=== PATIENT | male | born 1950 | race American Indian/Alaskan Native ===

== ENCOUNTER 2017-06-09 19:30 | Inpatient (IN) | payer OTHER, MEDICARE ==
[2017-06-09] MEDS ORDERED: Sodium Chloride 0.9% 1,000 ML IV STA ×2 (20:04→21:07)
[2017-06-09] MEDS ORDERED: HYDROmorphone 2 mg/ml ISec IVP STA (20:05)
--- NOTE | 2017-06-09 20:57 | ED PDOC ---
Arrival/HPI - General Chief Complaint: GI Problem Time Seen by Provider: 06/09/17 19:34 Historian: Patient - History of Present Illness Narrative History of Present Illness (Text): 06/09/17 20:55 Jose Ford is a 67 year old male, whose past medical history includes diabetes, who presents to the Emergency department complaining of epigastric pain for 1 day. Patient denies any fever, chills, chest pain, shortness of breath, nausea, vomiting, diarrhea, urinary symptoms, back pain, neck pain, headache, dizziness , or any other complaints. Patient states he was seen in his PMD's office for similar complaints and sent to the ER for further evaluation. PMD: Dr. Arabella Mills Symptom Onset: Gradual Symptom Course: Unchanged Activities at Onset: Light Context: Home Past Medical History - Provider Review Nursing Documentation Reviewed: Yes - Infectious Disease Hx of Infectious Diseases: None - Cardiac Hx Cardiac Disorders: Yes Hx Hypertension: Yes - Pulmonary Hx Respiratory Disorders: No - Neurological Hx Neurological Disorder: No - HEENT Hx HEENT Disorder: Yes (X GLASSES) - Renal Hx Renal Disorder: No - Endocrine/Metabolic Hx Endocrine Disorders: Yes Hx Diabetes Mellitus Type 2: Yes - Hematological/Oncological Hx Blood Disorders: Yes Hx Cancer: Yes (liver) - Integumentary Hx Dermatological Disorder: No - Musculoskeletal/Rheumatological Hx Musculoskeletal Disorders: No Hx Falls: No - Gastrointestinal Hx Gastrointestinal Disorders: No - Genitourinary/Gynecological Hx Genitourinary Disorders: No - Psychiatric Hx Psychophysiologic Disorder: No Hx Depression: No Hx Emotional Abuse: No Hx Physical Abuse: No Hx Substance Use: No - Anesthesia Hx Anesthesia: No - Suicidal Assessment Feels Threatened In Home Enviroment: No Family/Social History - Physician Review Nursing Documentation Reviewed: Yes Family/Social History: Unknown Family HX Smoking Status: Never Smoked Hx Alcohol Use: No Hx Substance Use: No Hx Substance Use Treatment: No Allergies/Home Meds Allergies/Adverse Reactions: Allergies pentazocine [From [facility]win] Allergy (Verified 06/09/17 19:39) ANAPHYLAXIS Home Medications: Home Meds Medication Instructions Recorded Confirmed Amlodipine Besylate/Benazepr 1 cap PO DAILY 01/05/12 06/09/17 [Lotrel 10 mg-20 mg] Glyburide/Metformin Hydrochl 1 tab PO BID 01/05/12 06/09/17 [Glucovance 5 mg-500 mg] Methadone [Methadone HCl] 70 mg PO DAILY 01/05/12 06/09/17 Insulin Glargine,Hum.rec.anlog 40 units SC HS 06/09/17 06/09/17 [Dipesh Pedro U-100] Review of Systems - Physician Review All systems were reviewed & negative as marked: Yes - Review of Systems Constitutional: Normal. absent: Fevers Eyes: Normal ENT: Normal Respiratory: Normal. absent: SOB, Cough Cardiovascular: Normal. absent: Chest Pain Gastrointestinal: Abdominal Pain. absent: Diarrhea, Nausea, Vomiting Genitourinary Male: Normal. absent: Dysuria, Frequency, Hematuria, Urinary Output Changes Musculoskeletal: Normal. absent: Back Pain, Neck Pain Skin: Normal. absent: Rash Neurological: Normal. absent: Headache, Dizziness Endocrine: Normal Hemo/Lymphatic: Normal Psychiatric: Normal Physical Exam Vital Signs Reviewed: Yes Vital Signs Temp Pulse Resp BP Pulse Ox 06/10/17 02:17 64 18 146/81 98 06/10/17 02:12 64 18 146/81 97 06/10/17 01:00 98.9 F 88 19 99 06/09/17 21:02 81 18 128/67 97 06/09/17 19:42 97.9 F 98 H 18 110/75 96 Temperature: Afebrile Blood Pressure: Normal Pulse: Regular Respiratory Rate: Normal Appearance: Positive for: Well-Appearing, Non-Toxic, Comfortable Pain Distress: None Mental Status: Positive for: Alert and Oriented X 3 - Systems Exam Head: Present: Atraumatic, Normocephalic Pupils: Present: PERRL Extroacular Muscles: Present: EOMI Conjunctiva: Present: Normal Mouth: Present: Moist Mucous Membranes Neck: Present: Normal Range of Motion Respiratory/Chest: Present: Clear to Auscultation, Good Air Exchange. No: Respiratory Distress, Accessory Muscle Use Cardiovascular: Present: Regular Rate and Rhythm, Normal S1, S2. No: Murmurs Abdomen: Present: Tenderness (Epigastric tenderness), Normal Bowel Sounds. No: Distention, Peritoneal Signs Back: Present: Normal Inspection Upper Extremity: Present: Normal Inspection. No: Cyanosis, Edema Lower Extremity: Present: Normal Inspection. No: Edema Neurological: Present: GCS=15, CN II-XII Intact, Speech Normal Skin: Present: Warm, Dry, Normal Color. No: Rashes Psychiatric: Present: Alert, Oriented x 3, Normal Insight, Normal Concentration Medical Decision Making ED Course and Treatment: 06/09/17 20:55 Impression: 67 year old male complaining of epigastric pain for 1 day. Plan: -- CT Abdomen and Pelvis -- EKG -- Labs, VBG, amylase, lipase, cardiac enzymes, blood cultures -- UA -- IV fluids -- Zofran -- Protonix -- Dilaudid -- Reassess and disposition Progress Notes: 06/09/17 21:45 Reviewed EKG, NSR at [address] bpm[address] Non-specific ST/T wave changes. 06/09/17 23:43 CT Abdomen and Pelvis shows: Lower thorax: Subpleural upper lobe cystic change. The remainder of the lung bases are clear. ABDOMEN: Liver: Indeterminate findings within segment 6 of the liver for which dedicated ultrasound versus contrast-enhanced MRI (with liver mass protocol) is suggested. Gallbladder and bile ducts: Stones and sludge are identified within the gallbladder which is minimally distended. No intra-extrahepatic biliary ductal dilation. Pancreas: Irregularity is identified within the head of the pancreas which demonstrates decreased attenuation. Surrounding infiltration of the peripancreatic fat at the level of the pancreatic head is also detected. Moderate dilatation of the main pancreatic duct is also noted. Minimally enlarged lymph nodes are identified within the pancreaticoduodenal, celiac and gastrohepatic Lymph node basins. The largest lymph node is within the pancreaticoduodenal chain measuring 15 mm in short axis dimension. Spleen: No acute findings. Adrenals: No acute findings. Kidneys and ureters: No obstructing stones. No hydronephrosis. Multiple areas of decreased attenuation are identified within the bilateral kidneys, statistically representing cysts. Multiple nonobstructing calcified stones are also present, the largest on the left measuring 7 mm in greatest dimension. PELVIS: Bladder: No acute findings. Reproductive: No acute findings. Appendix: The air filled appendix is of normal-caliber (series 601, image 74; series 2, image 105) ABDOMEN and PELVIS: Stomach and bowel: No acute findings. Peritoneum: As above. Lymph nodes: As above. Vasculature: No aortic aneurysm. Calcified atherosclerotic disease. Limited evaluation of the portal vein and celiac axis without intravenous contrast. Bones: No acute fracture. No lytic or blastic lesions are identified. IMPRESSION: Findings within the head of the pancreas worrisome for malignancy, as detailed above. Limited evaluation of the surrounding vasculature, secondary to the lack of intravenous contrast. Indeterminate findings within segment 6 of the liver for which dedicated ultrasound versus contrastenhanced MRI (with liver mass protocol) is recommended for further evaluation. Stones and sludge within the gallbladder. 06/09/17 23:[address] Mills's service, per his request. Service would not transfer call through to Dr. Mills. 06/10/17 01:[address] Glover, covering for Dr. Mills, who is aware and agrees with plan. Pt will be admitted to [facility] for abdomial pain and pancreatitis under Dr. Mills's service. - Lab Interpretations Microbiology Results: Microbiology Results 06/09/17 21:00 Blood-Venous Blood Culture - Preliminary NO GROWTH AFTER 24 HOURS 06/09/17 20:40 Blood-Venous Blood Culture - Preliminary NO GROWTH AFTER 24 HOURS Lab Results: 06/09/17 20:40 06/09/17 20:40 Lab Results 06/09/17 23:04: POC Glucose (mg/dL) 172 H 06/09/17 21:33: POC Glucose (mg/dL) 433 H* 06/09/17 20:40: pO2 43, VBG pH 7.29 L, VBG pCO2 62.0 H, VBG HCO3 29.8 H, VBG Total CO2 31.7 H, VBG O2 Sat (Calc) 81.0 H, VBG Base Excess 1.6, VBG Potassium 5.3 H, Sodium 133.0, Chloride 95.0 L, Glucose 523 H*, Lactate 1.1, FiO2 21.0, Venous Blood Potassium 5.3 H 06/09/17 20:40: Sodium 134, Chloride 96 L, Potassium 5.2 H, Carbon Dioxide 28, Anion Gap 16, BUN 35 H, Creatinine 1.5, Est GFR ( Amer) 56, Est GFR (Non- Af Amer) 46, Random Glucose 501 H*, Calcium 9.8, Total Bilirubin 0.8, AST 46, ALT 56, Alkaline Phosphatase 81, Lactate Dehydrogenase 461, Total Creatine Kinase 49, Troponin I < 0.01, Total Protein 7.5, Albumin 4.1, Globulin 3.4, Albumin/Globulin Ratio 1.2, Amylase 94, Lipase 357 H 06/09/17 20:40: PT 11.7, INR 1.07, APTT 27.7 06/09/17 20:40: WBC 4.8, RBC 4.73, Hgb 13.4 L, Hct 42.0, MCV 88.8, MCH 28.3, MCHC 31.9, RDW 12.6, Plt Count 162, MPV 11.5 H, Gran % 73.9 H, Lymph % (Auto) 19.9 L, Upson % (Auto) 5.2, Eos % (Auto) 0.8 L, Baso % (Auto) 0.2, Gran # 3.57, Lymph # 1.0 L, Upson # 0.3, Eos # 0.0, Baso # 0.01 I have reviewed the lab results: Yes - RAD Interpretation Radiology Orders: 06/09/17 21:18 ABD & PELVIS W/O PO OR IV CONT [CT] Stat [employer]: Radiologist - EKG Interpretation Interpreted by ED Physician: Yes Type: 12 lead EKG - Medication Orders Current Medication Orders: Sodium Chloride (Sodium Chloride 0.45%) 1,000 mls @ 80 mls/hr IV .[id number] [facility] Last Admin: 06/10/17 07:17 Dose: 80 mls/hr eMAR Start Stop Document 06/10/17 07:17 (Rec: 06/10/17 07:18 [email or web address] Intravenous Solution Start Date 06/10/17 Start Time 07:00 Insulin Human Regular (Humulin R Low) 0 units SC ACHS [facility] PRN Reason: Protocol Last Admin: 06/10/17 22:21 Dose: Not Given Non-Admin Reason: Blood Sugar Parameter [facility] Blood Glucose Document 06/10/17 22:21 KT (Rec: 06/10/17 22:21 KT [id number]) Blood Glucose Finger Stick Blood Glucose (70-120) 182 Methadone HCl (Methadone) 10 mg PO DAILY [facility] Last Admin: 06/10/17 21:20 Dose: 10 mg MAR Pain Assessment Document 06/10/17 21:20 KT (Rec: 06/10/17 21:22 KT [id number]) Pain Reassessment Is this a pain reassessment? No Presence of Pain Presence of Pain Yes Pain Scale Used Pain Scale Used Numeric Pantoprazole Sodium (Protonix Inj) 40 mg IVP DAILY [facility] Last Admin: 06/10/17 10:59 Dose: 40 mg IVP Administration Document 06/10/17 10:59 YJ (Rec: 06/10/17 10:59 YJ [id number]) Charges for Administration # of IVP Administrations 1 Polyethylene Glycol (Miralax) 17 gm PO BID JAIRO Last Admin: 06/10/17 17:26 Dose: 17 gm Discontinued Medications Hydromorphone HCl (Dilaudid) 2 mg IVP STAT STA Stop: 06/09/17 20:06 Last Admin: 06/09/17 20:57 Dose: 2 mg MAR Pain Assessment Document 06/09/17 20:57 EQ (Rec: 06/09/17 20:57 EQ [id number]) Pain Reassessment Is this a pain reassessment? No Sleep Is patient sleeping during reassessment? No Presence of Pain Presence of Pain Yes Pain Scale Used Pain Scale Used Numeric IVP Administration Document 06/09/17 20:57 EQ (Rec: 06/09/17 20:57 EQ [id number]) Charges for Administration # of IVP Administrations 1 Sodium Chloride (Sodium Chloride 0.9%) 1,000 mls @ 100 mls/hr IV .Q10H STA Stop: 06/10/17 06:03 Last Admin: 06/09/17 20:56 Dose: 100 mls/hr eMAR Start Stop Document 06/09/17 20:56 EQ (Rec: 06/09/17 20:57 EQ [id number]) Intravenous Solution Start Date 06/09/17 Start Time 20:56 Sodium Chloride (Sodium Chloride 0.9%) 1,000 mls @ 200 mls/hr IV .Q5H STA Stop: 06/10/17 01:03 Last Admin: 06/09/17 21:22 Dose: 200 mls/hr eMAR Start Stop Document 06/09/17 21:22 EQ (Rec: 06/09/17 21:22 EQ [id number]) Intravenous Solution Start Date 06/09/17 Start Time 21:22 Metronidazole (Flagyl) 500 mg in 100 mls @ 100 mls/hr IVPB STAT STA PRN Reason: Protocol Stop: 06/10/17 02:34 Last Admin: 06/10/17 03:24 Dose: 100 mls/hr eMAR Start Stop Document 06/10/17 03:24 MJ (Rec: 06/10/17 03:25 MJ [id number]) Intravenous Solution Start Date 06/10/17 Start Time 03:25 Ceftriaxone Sodium (Rocephin 1 Gram Ivpb (D5w)) 1 gm in 100 mls @ 200 mls/hr IVPB STAT JAIRO PRN Reason: Protocol Stop: 06/10/17 02:14 Last Admin: 06/10/17 02:13 Dose: 200 mls/hr eMAR Start Stop Document 06/10/17 02:13 [email or web address] (Rec: 06/10/17 02:13 [email or web address] [id number]) Intravenous Solution Start Date 06/10/17 Start Time 02:13 End Date 06/10/17 Sodium Chloride (Sodium Chloride 0.9%) 1,000 mls @ 100 mls/hr IV .Q10H STA Stop: 06/10/17 11:36 Last Admin: 06/10/17 02:13 Dose: 100 mls/hr eMAR Start Stop Document 06/10/17 02:13 [email or web address] (Rec: 06/10/17 02:13 [email or web address] [id number]) Intravenous Solution Start Date 06/10/17 Start Time 02:13 End Date 06/10/17 Insulin Human Regular (Humulin R) 10 units IVP STAT STA Stop: 06/09/17 21:05 Last Admin: 06/09/17 21:37 Dose: 10 units [facility] Blood Glucose Document 06/09/17 21:37 EQ (Rec: 06/09/17 21:37 EQ [id number]) Blood Glucose Finger Stick Blood Glucose (70-120) 433 IVP Administration Document 06/09/17 21:37 EQ (Rec: 06/09/17 21:37 EQ [id number]) Charges for Administration # of IVP Administrations 1 Morphine Sulfate (Morphine) 2 mg IVP Q4H PRN PRN Reason: Pain, moderate (4-7) Last Admin: 06/10/17 15:55 Dose: 2 mg MAR Pain Assessment Document 06/10/17 15:55 YJ (Rec: 06/10/17 15:56 YJ [id number]) Pain Reassessment Is this a pain reassessment? Yes Sleep Is patient sleeping during reassessment? No Presence of Pain Presence of Pain Yes Pain Scale Used Pain Scale Used Numeric Location Pain Location Body Site Abdomen Description Intensity of Pain at present 7 IVP Administration Document 06/10/17 15:55 YJ (Rec: 06/10/17 15:56 YJ [id number]) Charges for Administration # of IVP Administrations 1 Re-Assess: SETH Pain Assessment Document 06/10/17 16:55 YJ (Rec: 06/10/17 17:26 YJ [id number]) Pain Reassessment Is this a pain reassessment? Yes Sleep Is patient sleeping during reassessment? Yes Ondansetron HCl (Zofran Inj) 4 mg IVP STAT STA Stop: 06/09/17 20:05 Last Admin: 06/09/17 20:57 Dose: 4 mg IVP Administration Document 06/09/17 20:57 EQ (Rec: 06/09/17 20:57 EQ [id number]) Charges for Administration # of IVP Administrations 1 Pantoprazole Sodium (Protonix Inj) 40 mg IVP ONCE STA Stop: 06/09/17 20:09 Last Admin: 06/09/17 20:57 Dose: 40 mg IVP Administration Document 06/09/17 20:57 EQ (Rec: 06/09/17 20:58 EQ [id number]) Charges for Administration # of IVP Administrations 1 - Scribe Statement The provider has reviewed the documentation as recorded by the Patricia Roca Provider Scribe Attestation: All medical record entries made by the Scribe were at my direction and personally dictated by me. I have reviewed the chart and agree that the record accurately reflects my personal performance of the history, physical exam, medical decision making, and the department course for this patient. I have also personally directed, reviewed, and agree with the discharge instructions and disposition. Disposition/Present on Arrival - Present on Arrival Any Indicators Present on Arrival: No History of DVT/PE: No History of Uncontrolled Diabetes: No Urinary Catheter: No History of Decub. Ulcer: No History Surgical Site Infection Following: None - Disposition Have Diagnosis and Disposition been Completed?: Yes Diagnosis: Pancreatitis, acute Disposition: HOSPITALIZED Disposition Time: 01:30 Patient Problems: Current Active Problems Problem Status Onset Pancreatitis, acute Acute Condition: FAIR
[2017-06-09 21:02] LABS: VENOUS BLOOD GAS BASE EXCESS 1.6 mmol/L (0.0-2.0); VENOUS BLOOD PH 7.29 (7.32-7.43)
[2017-06-09] MEDS ORDERED: Insulin Regular 1 UNITS/0.01 ML ML IVP STA (21:04)
[2017-06-09 21:06] LABS: BASO # 0.01 K/mm3 (0.0-2.0); BASO % 0.2 % (0.0-3.0); EOS % 0.8 % (1.5-5.0); GRAN # 3.57 (1.4-6.5); GRAN % 73.9 % (50.0-68.0); LYMPH % 19.9 % (22.0-35.0); MEAN CELL VOLUME 88.8 fl (80.0-105.0); MEAN CORPUSCULAR HEMOGLOBIN 28.3 pg (25.0-35.0); MEAN CORPUSCULAR HGB CONC 31.9 g/dl (31.0-37.0); MEAN PLATELET VOLUME 11.5 fl (7.0-11.0); MONO # 0.3 (0.1-0.6); MONO % 5.2 % (1.0-6.0); RED CELL DISTRIBUTION WIDTH 12.6 % (11.5-14.5); WHITE BLOOD COUNT 4.8 10^3/ul (4.5-11.0)
[2017-06-09 21:17] LABS: ALB/GLOB RATIO 1.2 (1.1-1.8); ALKALINE PHOSPHATASE 81 U/L (38-126); ALT/SGPT 56 U/L (7-56); AMYLASE 94 U/L (35-125); AST/SGOT 46 U/L (17-59); BILIRUBIN,TOTAL 0.8 mg/dL (0.2-1.3); BLOOD UREA NITROGEN 35 mg/dL (7-21); CALCIUM 9.8 mg/dL (8.4-10.5); CARBON DIOXIDE 28 mmol/L (21-33); CHLORIDE 96 mmol/L (98-107); GFR AFRICAN-AMERICAN 56; LIPASE 357 U/L (23-300); POTASSIUM 5.2 mmol/L (3.6-5.0); SODIUM 134 mmol/L (132-148); TOTAL PROTEIN 7.5 g/dL (5.8-8.3)
[2017-06-09 21:21] LABS: GLUCOSE,RANDOM 501 mg/dL (70-110)
[2017-06-09 21:23] LABS: TROPONIN I < 0.01 ng/mL
[2017-06-09 21:38] LABS: INR 1.07 (0.93-1.08); PARTIAL THROMBOPLASTIN TIME 27.7 Seconds (25.1-36.5)
--- NOTE | 2017-06-09 23:42 | CT ---
EXAM: CT Abdomen and Pelvis Without Intravenous Contrast CLINICAL HISTORY: 67 years old, male; Pain; Abdominal pain; Acute; Additional info: Abd pain TECHNIQUE: Axial computed tomography images of the abdomen and pelvis without intravenous contrast. All CT scans at this facility use one or more dose reduction techniques, viz.: automated exposure control; ma/kV adjustment per patient size (including targeted exams where dose is matched to indication; i.e. head); or iterative reconstruction technique. Coronal and sagittal reformatted images were created and reviewed. COMPARISON: No relevant prior studies available. FINDINGS: Lower thorax: Subpleural upper lobe cystic change. The remainder of the lung bases are clear. ABDOMEN: Liver: Indeterminate findings within segment 6 of the liver for which dedicated ultrasound versus contrast-enhanced MRI (with liver mass protocol) is suggested. Gallbladder and bile ducts: Stones and sludge are identified within the gallbladder which is minimally distended. No intra-extrahepatic biliary ductal dilation. Pancreas: Irregularity is identified within the head of the pancreas which demonstrates decreased attenuation. Surrounding infiltration of the peripancreatic fat at the level of the pancreatic head is also detected. Moderate dilatation of the main pancreatic duct is also noted. Minimally enlarged lymph nodes are identified within the pancreaticoduodenal, celiac and gastrohepatic Lymph node basins. The largest lymph node is within the pancreaticoduodenal chain measuring 15 mm in short axis dimension. Spleen: No acute findings. Adrenals: No acute findings. Kidneys and ureters: No obstructing stones. No hydronephrosis. Multiple areas of decreased attenuation are identified within the bilateral kidneys, statistically representing cysts. Multiple nonobstructing calcified stones are also present, the largest on the left measuring 7 mm in greatest dimension. PELVIS: Bladder: No acute findings. Reproductive: No acute findings. Appendix: The air filled appendix is of normal-caliber (series 601, image 74; series 2, image 105) ABDOMEN and PELVIS: Stomach and bowel: No acute findings. Peritoneum: As above. Lymph nodes: As above. Vasculature: No aortic aneurysm. Calcified atherosclerotic disease. Limited evaluation of the portal vein and celiac axis without intravenous contrast. Bones: No acute fracture. No lytic or blastic lesions are identified. IMPRESSION: Findings within the head of the pancreas worrisome for malignancy, as detailed above. Limited evaluation of the surrounding vasculature, secondary to the lack of intravenous contrast. Indeterminate findings within segment 6 of the liver for which dedicated ultrasound versus contrast-enhanced MRI (with liver mass protocol) is recommended for further evaluation. Stones and sludge within the gallbladder.
[2017-06-10] MEDS ORDERED: metroNIDAZOLE IV 500 mg/100 ml 500 MG/100 ML BAG IVPB STA (01:35)
[2017-06-10] MEDS ORDERED: Sodium Chloride 0.9% 1,000 ML IV STA (01:37)
[2017-06-10] MEDS ORDERED: cefTRIAXone 1 gm 1 GM/100 ML BAG IVPB SCH (01:45)
[2017-06-10] MEDS: Morphine 2 mg/ml ISec IVP PRN ×3 (02:46→15:55)
[2017-06-10 03:12] VITALS: BMI 22.4
[2017-06-10 06:57] LABS: HEMATOCRIT 40.1 % (42.0-52.0); MEAN CELL VOLUME 88.9 fl (80.0-105.0); MEAN CORPUSCULAR HEMOGLOBIN 28.2 pg (25.0-35.0); MEAN CORPUSCULAR HGB CONC 31.7 g/dl (31.0-37.0); MEAN PLATELET VOLUME 11.2 fl (7.0-11.0); RED CELL DISTRIBUTION WIDTH 12.7 % (11.5-14.5); WHITE BLOOD COUNT 4.3 10^3/ul (4.5-11.0)
[2017-06-10] MEDS: Sodium Chloride 0.45% 1,000 ML IV SCH (07:17)
[2017-06-10] MEDS: Insulin Reg-LOW-Coverage SC SCH ×4 (08:25→22:21)
[2017-06-10 08:30] LABS: ALKALINE PHOSPHATASE 68 U/L (38-126); ALT/SGPT 43 U/L (7-56); AMYLASE 81 U/L (35-125); AST/SGOT 42 U/L (17-59); BILIRUBIN,TOTAL 0.5 mg/dL (0.2-1.3); BLOOD UREA NITROGEN 26 mg/dL (7-21); CALCIUM 9.2 mg/dL (8.4-10.5); CARBON DIOXIDE 29 mmol/L (21-33); CHLORIDE 105 mmol/L (98-107); GFR AFRICAN-AMERICAN > 60; GLUCOSE,RANDOM 106 mg/dL (70-110); LIPASE 261 U/L (23-300); POTASSIUM 4.5 mmol/L (3.6-5.0); SODIUM 142 mmol/L (132-148); TOTAL PROTEIN 6.9 g/dL (5.8-8.3)
--- NOTE | 2017-06-10 09:43 | CP.PCM.CON ---
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 Pt states that it started after he had a fish burger at [employer] on Thursday. He describes it as achy, intermittent, associated with food, and has associated nausea. Pt had one dry heaving episode. Denies vomiting, diarrhea, brbpr, change in bowel habits, hematochezia, melena. Pt has had constipation for the past 4-5 days. Pt normally has intermittent constipation, he attributes it to his daily 70mg methadone. Pt states that his father in law, who also ate same sandwich with him, got sick too with diarrhea. No prior EGD or colonoscopy. Denies recent travel. Pt has had In ED, pt received Protonix 40 mg IVx1 and zofran [address] abd pelvis showed irregularity within head of pancreas, mod dilatation of pancreatic duct. enlarged lymph nodes within pancreaticoduodenal chain, largest one measuring 15 mm. Gallstones and sludge within gallbladder, minimally distended. Lipase 357, AST, ALT ALP within normal limits. T bili 0.8, albumin 4.1. Currently, pt states that his pain is minimal and is hungry. Pt follows up with Dr Lazar (interventional radiology) and Dr latham at [facility]. His last MRI abdomen was on 05/20/2017, which showed no further growth. He is scheduled to start his Hep C treatment soon - previously held due to insurance issues. 12 point ROS obtained and negative except as noted per HPI. PMH: Hepatitis C, Liver Cancer (diagnosed 08/2016; chemoembolization x1 on 2016 at [facility]. Latest MRI 05/2017 shows no further growth), DM, HTN PSH: Denies All: Pentazocine FH: DM. Denies pancreatic cancer, gastric or colon cancer. SH: Former IV drug user. Denies alcohol use in lifetime. Former smoker, quit 20 years ago; previously 1 ppd x 5 years. Review of Systems - Review of Systems All systems: reviewed and no additional remarkable complaints except Review of Systems: as per HPI Past Patient History - Infectious Disease Hx of Infectious Diseases: None - Past Social History Smoking Status: Former Smoker - CARDIAC Hx Cardiac Disorders: Yes Hx Hypertension: Yes - PULMONARY Hx Respiratory Disorders: No - NEUROLOGICAL Hx Neurological Disorder: No - HEENT Hx HEENT Problems: Yes (X GLASSES) - RENAL Hx Chronic Kidney Disease: No - ENDOCRINE/METABOLIC Hx Endocrine Disorders: Yes Hx Diabetes Mellitus Type 2: Yes - HEMATOLOGICAL/ONCOLOGICAL Hx Blood Disorders: Yes Hx Cancer: Yes (liver) - INTEGUMENTARY Hx Dermatological Problems: No - MUSCULOSKELETAL/RHEUMATOLOGICAL Hx Musculoskeletal Disorders: No Hx Falls: No - GASTROINTESTINAL Hx Gastrointestinal Disorders: No - GENITOURINARY/GYNECOLOGICAL Hx Genitourinary Disorders: No - PSYCHIATRIC Hx Psychophysiologic Disorder: No Hx Depression: No Hx Emotional Abuse: No Hx Physical Abuse: No - SURGICAL HISTORY Hx Surgeries: No - ANESTHESIA Hx Anesthesia: No Meds Allergies/Adverse Reactions: Allergies Allergy/AdvReac Type Severity Reaction Status Date / Time pentazocine [From Joana] Allergy ANAPHYLAXIS Verified 06/09/17 19:39 - Medications Medications: Current Medications Sodium Chloride (Sodium Chloride 0.45%) 1,000 mls @ 80 mls/hr IV .[id number] [facility] Last Admin: 06/10/17 07:17 Dose: 80 mls/hr Insulin Human Regular (Humulin R Low) 0 units SC ACHS [facility] PRN Reason: Protocol Last Admin: 06/10/17 08:25 Dose: Not Given Morphine Sulfate (Morphine) 2 mg IVP Q4H PRN PRN Reason: Pain, moderate (4-7) Last Admin: 06/10/17 07:22 Dose: 2 mg Physical Exam - Constitutional Appears: Non-toxic, No Acute Distress, Older Than Stated Age - Head Exam Head Exam: ATRAUMATIC, NORMOCEPHALIC - Eye Exam Eye Exam: EOMI, PERRL Pupil Exam: PERRL - ENT Exam ENT Exam: Mucous Membranes Moist - Respiratory Exam Respiratory Exam: Clear to Auscultation Bilateral. absent: Respiratory Distress - Cardiovascular Exam Cardiovascular Exam: RRR, +S1, +S2. absent: Systolic Murmur - GI/Abdominal Exam GI & Abdominal Exam: Normal Bowel Sounds, Soft, Tenderness. absent: Guarding, Mass, Organomegaly, Rebound, Rigid Additional comments: TTP in epigastric area - Extremities Exam Extremities exam: Negative for: calf tenderness, pedal edema - Back Exam Back exam: NORMAL INSPECTION - Neurological Exam Neurological exam: Alert, Oriented x3 - Psychiatric Exam Psychiatric exam: Normal Mood - Skin Skin Exam: Dry, Warm Results - Vital Signs Recent Vital Signs: Last Vital Signs Temp 97.8 F 06/10/17 07:30 Pulse 64 06/10/17 07:30 Resp 20 06/10/17 07:30 BP 137/82 06/10/17 07:30 Pulse Ox 97 06/10/17 07:30 - Labs Result Diagrams: 06/10/17 06:30 06/10/17 06:30 Labs: Laboratory Results - last 24 hr 06/10/17 06/10/17 06/10/17 06:30 06:30 07:26 WBC 4.3 L RBC 4.51 Hgb 12.7 L Hct 40.1 L MCV 88.9 MCH 28.2 MCHC 31.7 RDW 12.7 Plt Count 146 MPV 11.2 H Sodium 142 Potassium 4.5 Chloride 105 Carbon Dioxide 29 Anion Gap 13 BUN 26 H Creatinine 1.2 Est GFR ( Amer) > 60 Est GFR (Non-Af Amer) > 60 POC Glucose (mg/dL) 87 Random Glucose 106 Calcium 9.2 Total Bilirubin 0.5 AST 42 ALT 43 Alkaline Phosphatase 68 Total Protein 6.9 Albumin 3.5 Globulin 3.4 Albumin/Globulin Ratio 1.0 L Amylase 81 Lipase 261 Assessment & Plan - Assessment and Plan (Free Text) Assessment: 67 years old male with hx of liver cancer (s/p chemoembolization in 09/2016), Hep C, presents for epigastric pain, nausea: Plan: - 2/2 likely GERD vs constipation vs gastroenteritis vs gastritis - CT abd pelvis showed irregularity within head of pancreas, mod dilatation of pancreatic duct. enlarged lymph nodes within pancreaticoduodenal chain - 15 mm. Gallstones and sludge within gallbladder, minimally distended. - Afebrile, hemodynamically stable, no leukocytosis/anemia. LFts within normal limits, ALP 81, lipase 357, lactate 1.1/ No signs of portal hypertension. - Received Protonix IV, zofran in ED - Pt currently states that his pain is minimal now, and he is hungry - Protonix, Miralax BID (titrate as needed) - Start Regular heart healthy, antidiabetic diet - Patient to follow up with his doctor at [facility] for Hepatitis C treatment and cancer monitoring. - Thank you for your consult. Please re-consult us for any concerns. Discussed with GI fellow and attending, Dr Henderson. Ana Maria Hill, PGY1 - Date & Time Date: 06/10/17 Time: 14:49 <Sandy Henderson MD - Last Filed: 06/10/17 16:23> Meds - Medications Medications: Current Medications Sodium Chloride (Sodium Chloride 0.45%) 1,000 mls @ 80 mls/hr IV .[id number] [facility] Last Admin: 06/10/17 07:17 Dose: 80 mls/hr Insulin Human Regular (Humulin R Low) 0 units SC ACHS [facility] PRN Reason: Protocol Last Admin: 06/10/17 12:59 Dose: Not Given Morphine Sulfate (Morphine) 2 mg IVP Q4H PRN PRN Reason: Pain, moderate (4-7) Last Admin: 06/10/17 15:55 Dose: 2 mg Pantoprazole Sodium (Protonix Inj) 40 mg IVP DAILY [facility] Last Admin: 06/10/17 10:59 Dose: 40 mg Polyethylene Glycol (Miralax) 17 gm PO BID [facility] Results - Vital Signs Recent Vital Signs: Last Vital Signs Temp 97.8 F 06/10/17 07:30 Pulse 64 06/10/17 07:30 Resp 20 06/10/17 07:30 BP 137/82 06/10/17 07:30 Pulse Ox 97 06/10/17 07:30 - Labs Result Diagrams: 06/10/17 06:30 06/10/17 06:30 Labs: Laboratory Results - last 24 hr 06/10/17 06/10/17 06/10/17 06:30 06:30 07:26 WBC 4.3 L RBC 4.51 Hgb 12.7 L Hct 40.1 L MCV 88.9 MCH 28.2 MCHC 31.7 RDW 12.7 Plt Count 146 MPV 11.2 H Sodium 142 Potassium 4.5 Chloride 105 Carbon Dioxide 29 Anion Gap 13 BUN 26 H Creatinine 1.2 Est GFR ( Amer) > 60 Est GFR (Non-Af Amer) > 60 POC Glucose (mg/dL) 87 Random Glucose 106 Calcium 9.2 Total Bilirubin 0.5 AST 42 ALT 43 Alkaline Phosphatase 68 Total Protein 6.9 Albumin 3.5 Globulin 3.4 Albumin/Globulin Ratio 1.0 L Amylase 81 Lipase 261 06/10/17 10:57 WBC RBC Hgb Hct MCV MCH MCHC RDW Plt Count MPV Sodium Potassium Chloride Carbon Dioxide Anion Gap BUN Creatinine Est GFR ( Amer) Est GFR (Non-Af Amer) POC Glucose (mg/dL) 150 H Random Glucose Calcium Total Bilirubin AST ALT Alkaline Phosphatase Total Protein Albumin Globulin Albumin/Globulin Ratio Amylase Lipase Attending/Attestation - Attestation I have personally seen and examined this patient.: Yes I have fully participated in the care of the patient.: Yes I have reviewed all pertinent clinical information: Yes Notes (Text): 06/10/17 16:11 Patient seen and examined at bedside with GI fellow. This is a 67 years old male with hx of liver cancer (s/p chemoembolization in 09/2016), chronic Hep C, treatment naive, admitted with epigastric pain and kiran pancreatic edema. Concerning CT imaging for liver lesions. On going oncology care at [facility] for HCC and chronic HCV. LFT is normal. This afternoon he denies nausea, vomiting, epigastric pain, constipation, diarrhea. Normal LFT. Will start PPI in am on empty stomach and miralax daily for constipation. Can start regular low fat diet and follow with his primary GI. Thank you for your consult. Please re-consult us for any concerns.
--- NOTE | 2017-06-10 12:59 | HP ---
HISTORY OF PRESENT ILLNESS: I saw Jose in my office last night around 6:00. He had severe abdominal pain. He could barely walked on my boggs in my office. I examined him, he had severe abdominal pain with guarding. He is a 67-year-old man who presents with severe abdominal pain, epigastric pain for about 24 to 36 hours. No chills, chest pain, shortness of breath, nausea, vomiting, diarrhea, urinary symptoms, back pain, neck pain, headache or dizziness. There is just midepigastric pain. I sent him to the emergency room and discussed with the ER doctor and he is here in the hospital now. PAST MEDICAL HISTORY: Diabetes, liver cancer, and hypertension. He is on methadone, some substance abuse history. Never smoked. FAMILY HISTORY: There is hypertension and diabetes in the family. ALLERGIES: HE HAS ALLERGY FROM [place]. MEDICATIONS: He takes amlodipine and benazepril for his blood pressure, glyburide for his diabetes, also some insulin and methadone for a drug issue. REVIEW OF SYSTEMS: No changes in vision or hearing. He can eat. He has no appetite. He has lost lot of weight. Throat is dry. No shortness of breath or cough. No chest pain or palpitation. He has severe abdominal pain, midepigastric. No diarrhea, nausea or vomiting. There is constipation, he has not had moved his bowels, but then he has been eating, but he does not feel uncomfortable. No problems urinating. No back pain or neck pain. No rashes or ulcers. No headache or dizziness. No anxiety. PHYSICAL EXAMINATION: VITAL SIGNS: He has 97.9 temperature, 98 pulse, 18 respiratory rate, 110/75 blood pressure, and 96% O2 sat. GENERAL: He is definitely in distress, little bit toxic. He is alert and oriented x3. HEENT: Head is atraumatic and normocephalic. Extraocular muscles intact. Pupils equally reactive to light and accommodation. Throat is dry. NECK: Supple. HEART: Regular rate. Normal S1 and S2. LUNGS: Decreased breath sounds bilaterally, but clear to auscultation. Poor inspiration. ABDOMEN: He has lot of abdominal pain. There is tenderness, epigastric through his guarding. Decreased bowel sounds. Mildly distended. EXTREMITIES: Have no edema. He is thin and frail. Lost lot of weight. I have not seen him in a very long, greater than 8 months, may be even a year. He lost lot of weight. NEUROLOGIC: GCS is 15. Cranial nerves II-XII grossly intact. SKIN: Warm and dry. Thyroid midline. No palpable appreciable lymphadenopathy. He is going to oncologist in the city and doctors in the city until this happened. He has got severe epigastric pain for one day. History of liver cancer and diabetes. He is on methadone. LABORATORY DATA: He had multiple tests. He has 4.3 white count, 12.7 hemoglobin, 40.1 hematocrit with 146 platelets. He has 1.07 INR. His lactate is 1.1. He had 134 sodium, potassium 5.2, BUN 35, creatinine 1.5, blood sugar is 501, 433 and now is down to 172, calcium is 9.8, AST is 46, ALT is 56, alkaline phosphatase is 81, lactate dehydrogenase is 461, total creatine kinase is 49, troponin less than 0.01, total protein is 7.5, and albumin is 4.1. His lipase is high at 257. There is a component of pancreatitis involvement here. He did have a CAT scan of the abdomen and pelvis, which is quite bothersome to me. It shows findings within the head of the pancreas for malignancy and to determine findings within the segment 6 of the liver and wanted to dedicate ultrasound versus enhanced MRI. Stone sludged within the gallbladder. I am going to call in GI, Dr. Tyler and Dr. Chappell, Oncology to get opinions here, because he usually goes to [place]. I will keep a very close eye on his n.p.o., pain medications, and IV fluids. He is here for pancreatitis possible, pancreatic cancer, severe abdominal pain and severe weight loss also. Partha Mills DO MTDD
--- NOTE | 2017-06-10 13:47 | CARD ---
APPROVED REPORT EKG Measurement Heart [id number] <Conclusion> Poor data quality, interpretation may be adversely affected Normal sinus rhythm
[2017-06-10] MEDS: POLYETHYLENE GLYCOL 3350 17 GM/Dose PACKET PO SCH (17:26)
[2017-06-11 04:36] VITALS: RESP 20; O2SAT 97
[2017-06-11 07:07] LABS: HEMATOCRIT 38.8 % (42.0-52.0); MEAN CELL VOLUME 87.8 fl (80.0-105.0); MEAN CORPUSCULAR HEMOGLOBIN 27.8 pg (25.0-35.0); MEAN CORPUSCULAR HGB CONC 31.7 g/dl (31.0-37.0); MEAN PLATELET VOLUME 11.1 fl (7.0-11.0); RED CELL DISTRIBUTION WIDTH 12.3 % (11.5-14.5); WHITE BLOOD COUNT 3.8 10^3/ul (4.5-11.0)
[2017-06-11 07:17] VITALS: BP 139/74; PULSE 56; TEMP 98.8
[2017-06-11] MEDS: Insulin Reg-LOW-Coverage SC SCH ×2 (07:54→12:21)
[2017-06-11] MEDS: Sodium Chloride 0.45% 1,000 ML IV SCH (07:59)
[2017-06-11 09:00] LABS: ALKALINE PHOSPHATASE 64 U/L (38-126); ALT/SGPT 44 U/L (7-56); AST/SGOT 45 U/L (17-59); BILIRUBIN,TOTAL 0.8 mg/dL (0.2-1.3); BLOOD UREA NITROGEN 18 mg/dL (7-21); CALCIUM 9.3 mg/dL (8.4-10.5); CARBON DIOXIDE 28 mmol/L (21-33); CHLORIDE 101 mmol/L (98-107); GFR AFRICAN-AMERICAN > 60; GLUCOSE,RANDOM 201 mg/dL (70-110); POTASSIUM 4.8 mmol/L (3.6-5.0); SODIUM 137 mmol/L (132-148); TOTAL PROTEIN 6.8 g/dL (5.8-8.3)
--- NOTE | 2017-06-11 09:03 | CP.PCM.PN ---
<Sujey Fischer - Last Filed: 06/11/17 09:05> Subjective - Date & Time of Evaluation Date of Evaluation: 06/11/17 Time of Evaluation: 09:01 - Subjective Subjective: PGY4 GI follow-up Pt seen and examined bedside Tolerating breakfast Denies any abd pain, nausea,or vomiting ROS: 10 point ROS conducted, neg other than above Objective - Vital Signs/Intake and Output Vital Signs (last 24 hours): Temp Pulse Resp BP Pulse Ox 98.8 F 56 L 20 139/74 97 06/11/17 07:16 06/11/17 07:16 06/11/17 07:16 06/11/17 07:16 06/11/17 00:00 Intake and Output: 06/11/17 06/11/17 06:59 18:59 Intake Total 980 260 Output Total 0 Balance 980 260 - Medications Medications: Current Medications Sodium Chloride (Sodium Chloride 0.45%) 1,000 mls @ 80 mls/hr IV .[id number] [facility] Last Admin: 06/11/17 07:59 Dose: 80 mls/hr Insulin Human Regular (Humulin R Low) 0 units SC ACHS [facility] PRN Reason: Protocol Last Admin: 06/11/17 07:54 Dose: 1 units Methadone HCl (Methadone) 70 mg PO DAILY [facility] Pantoprazole Sodium (Protonix Inj) 40 mg IVP DAILY [facility] Last Admin: 06/10/17 10:59 Dose: 40 mg Polyethylene Glycol (Miralax) 17 gm PO BID [facility] Last Admin: 06/10/17 17:26 Dose: 17 gm - Labs Labs: 06/11/17 06:30 06/10/17 06:30 PT 11.7 SECONDS (9.4-12.5) 06/09/17 20:40 INR 1.07 (0.93-1.08) 06/09/17 20:40 APTT 27.7 Seconds (25.1-36.5) 06/09/17 20:40 - Constitutional Appears: Well, No Acute Distress - Head Exam Head Exam: ATRAUMATIC, NORMOCEPHALIC - Eye Exam Eye Exam: Normal appearance - ENT Exam ENT Exam: Mucous Membranes Moist - Respiratory Exam Respiratory Exam: Clear to Ausculation Bilateral, NORMAL BREATHING PATTERN. absent: Rales, Rhonchi, Wheezes, Respiratory Distress - Cardiovascular Exam Cardiovascular Exam: REGULAR RHYTHM, +S1, +S2 - GI/Abdominal Exam GI & Abdominal Exam: Soft, Normal Bowel Sounds. absent: Guarding, Tenderness, Organomegaly - Extremities Exam Extremities Exam: absent: Joint Swelling, Pedal Edema - Neurological Exam Neurological Exam: Alert, Awake, Oriented x3 - Psychiatric Exam Psychiatric exam: Normal Affect, Normal Mood - Skin Skin Exam: Dry, Intact, Normal Color, Warm Assessment and Plan - Assessment and Plan (Free Text) Assessment: Jose Ford is a 67 years old male with hx of liver cancer? (HCC?) (s/p chemoembolization in 09/2016), Hep C who presents for epigastric pain, nausea. Dyspepsia GERD Chronic Constipation HCC? s/p chemoembolization CT suspicious for pancreatic mass - CT abd pelvis showed irregularity within head of pancreas, mod dilatation of pancreatic duct. enlarged lymph nodes within pancreaticoduodenal chain - 15 mm. Gallstones and sludge within gallbladder, minimally distended. - will get CT pancreas to better visualize the pancreas and r/o mass - Protonix, Miralax BID (titrate as needed) - If CT pancreas reveals a mass, will discuss options for EUS/FNA - Patient to follow up with his doctor at [facility] for Hepatitis C treatment and cancer monitoring. - will try to obtain records from [facility] D/W Dr. Tyler <Speedy Tyler - Last Filed: 06/11/17 10:44> Objective - Vital Signs/Intake and Output Vital Signs (last 24 hours): Temp Pulse Resp BP Pulse Ox 98.8 F 56 L 20 139/74 97 06/11/17 07:16 06/11/17 07:16 06/11/17 07:16 06/11/17 07:16 06/11/17 00:00 Intake and Output: 06/11/17 06/11/17 06:59 18:59 Intake Total 980 260 Output Total 0 Balance 980 260 - Medications Medications: Current Medications Sodium Chloride (Sodium Chloride 0.45%) 1,000 mls @ 80 mls/hr IV .[id number] [facility] Last Admin: 06/11/17 07:59 Dose: 80 mls/hr Insulin Human Regular (Humulin R Low) 0 units SC ACHS [facility] PRN Reason: Protocol Last Admin: 06/11/17 07:54 Dose: 1 units Methadone HCl (Methadone) 70 mg PO DAILY [facility] Last Admin: 06/11/17 09:29 Dose: 70 mg Pantoprazole Sodium (Protonix Inj) 40 mg IVP DAILY [facility] Last Admin: 06/11/17 09:29 Dose: 40 mg Polyethylene Glycol (Miralax) 17 gm PO BID [facility] Last Admin: 06/11/17 09:30 Dose: 17 gm - Labs Labs: 06/11/17 06:30 06/11/17 06:30 PT 11.7 SECONDS (9.4-12.5) 06/09/17 20:40 INR 1.07 (0.93-1.08) 06/09/17 20:40 APTT 27.7 Seconds (25.1-36.5) 06/09/17 20:40 Attending/Attestation - Attestation I have personally seen and examined this patient.: Yes I have fully participated in the care of the patient.: Yes I have reviewed all pertinent clinical information, including history, physical exam and plan: Yes Notes (Text): 06/11/17 10:41 67 years old male with HCV, HCC s/p treatment at [facility] (records unavailable, chemoembo or y90 probably) admitted with abdominal pain and nausea , also with h/o weight loss. 1. Dyspepsia 2. HCC 3. Pancreas mass 4. Cholelithiasis Plan: - possible mass in the HOP on CT, recommend panc protocol CT for better characterization - if a mass is confirmed, he will need to schedule outpatient EUS with biopsy either here or at [facility] - discussed with patient - ok for discharge, but would get CT first and if mass present would try to arrange outpatient biopsy - in the meantime, continue PPI and bowel regimen
[2017-06-11] MEDS: POLYETHYLENE GLYCOL 3350 17 GM/Dose PACKET PO SCH (09:30)
[2017-06-11] MEDS ORDERED: Iohexol 240 (50 ml) ONE (10:22)
--- NOTE | 2017-06-11 10:49 | DS ---
HOSPITAL COURSE: He was able to eat breakfast this morning. We are going to see how he does for lunch, he is still having abdominal pain. He is on methadone 70 mg, we will put him back on that. He is on MiraLax and Protonix. Also, he is just getting his appetite back, so he is starting to improve. GI says he can be discharged, we will plan for discharge after lunch, if he has lunched well. PHYSICAL EXAMINATION: VITAL SIGNS: He has 98.8 temp, 66 pulse, 139/74 blood pressure, 20 respiratory rate, and 97% O2 sats on room air. HEENT: Head is atraumatic and normocephalic. HEART: Regular rate. LUNGS: Clear to auscultation. ABDOMEN: Soft, mildly distended, less tenderness. No guarding, no rebound. Positive bowel sounds. EXTREMITIES: No edema. MEDICATIONS: He is currently on insulin coverage, methadone 70, MiraLax, Protonix IV, and IV fluids. LABORATORY DATA: He has 142 sodium, potassium 4.5, BUN 26, and creatinine 1.2. His last blood sugar was 199. Calcium is 9.2, total bili is 0.5, AST is 42, ALT is 43, alkaline phosphatase is 68, and total protein is 6.9. White count 3.8, 12.3 hemoglobin hematocrit with 139 platelets. ASSESSMENT AND PLAN: He will be discharged hopefully later today after lunch. This was thus discussed with the yard inspector. He will follow up with his doctors in [place] and hopefully, he will be doing very well. Partha Mills DO DT: 06/11/2017 9:22:55 MTDD
--- NOTE | 2017-06-11 11:59 | CON ---
ONCOLOGY CONSULTATION HISTORY OF PRESENT ILLNESS: This is a 67-year-old man with a questionable liver metastasis. The patient tells me the history that he has longstanding hepatitis positivity, for which he never had treatment. He is on methadone. He used to drink heavily many years ago, although nonetheless several years noted that he smoked cigarettes. He is being followed at [facility] in [place] both for his hepatitis as well as for a lesion that was seen in his liver in the past, for which he was told this was cancer and he says that it was approximately 2 cm and was treated with radioactive seeds at that hospital. Most recently, he is being followed there every six weeks and with a repeated MRI. His last MRI was in May and he was told he was okay. He comes now for vague abdominal pain, it is midepigastric that I knew unrelated to these other things. PHYSICAL EXAMINATION: SKIN: No petechiae. No bruises. HEENT: Anicteric. NODES: Nonpalpable in the axillary, cervical, supraclavicular, or inguinal regions. LUNGS: Clear at present. No vertebral tenderness. HEART: S1 and S2. ABDOMEN: Shows no liver, no spleen, no tenderness, no rebound, no ascites. EXTREMITIES: No edema. SENIOR MARKETING ASSOCIATE: No focal finding. LABORATORY DATA: The CAT scan shows the liver with indeterminate findings and cholecystitis or gallbladder positivity. Pancreas shows irregularity at the head of the pancreas. There is otherwise no lymphadenopathy or increased spleen. ASSESSMENT AND PLAN: At this point, the further workup in terms of the cancer will be left to the doctors at [facility]. We will have all of his previous records and multiple MRIs to compare and he is aware of that he will be followed up at [place] for the tumor. The patient will be followed up at [place]. Surendra Chappell MD
--- NOTE | 2017-06-11 13:27 | CT ---
PROCEDURE: CT Abdomen and Pelvis with and without intravenous contrast HISTORY: r/o pancreatic mass COMPARISON: Nonenhanced CT dated 06/09/2017 TECHNIQUE: Axial images of the abdomen were obtained in the pre contrast, portal venous and delayed phases of enhancement. Coronal and sagittal reformats were generated. Contrast dose: 150 cc of Omni 350 Radiation dose: Total exam DLP = 1539 mGy-cm. This CT exam was performed using one or more of the following dose reduction techniques: Automated exposure control, adjustment of the mA and/or kV according to patient size, and/or use of iterative reconstruction technique. FINDINGS: LOWER THORAX: Unremarkable. LIVER: There is a hypodense lesion in the right lobe of the liver adjacent to the gallbladder fossa. This has are regular borders. On the delayed images this measures 50 Hounsfield units in density. On the arterial phase it measures 46 Hounsfield units. The findings are nonspecific. There is some focal scarring and retraction of the liver adjacent to this lesion. This could represent an area of necrosis and scarring. A metastatic lesion cannot be excluded. GALLBLADDER AND BILE DUCTS: There is a large stone in the gallbladder this measures 4.2 cm. The central calcified core of this stone measures 2 cm. PANCREAS: There is no evidence of a pancreatic head mass as suspected on the nonenhanced study. There is a 1.5 cm simple cyst in the uncinate process seen on image 60 series 5. There is moderate dilatation of the pancreatic duct especially in the pancreatic tail. A cystic lesion is seen contiguous with the duct in the body of the pancreas this measures 9 x 26 mm images 41 and 42 of series 5. This lesion shows no enhancement and is fluid density. Findings in the pancreas are suspicious for a IPMN. SPLEEN: Unremarkable. ADRENALS: Unremarkable. No mass. KIDNEYS AND URETERS: Unremarkable. No hydronephrosis. No solid mass. VASCULATURE: Unremarkable. No aortic aneurysm. No vascular invasion seen in the region of the pancreas. BOWEL: Unremarkable. No obstruction. No gross mural thickening. APPENDIX: Normal appendix. PERITONEUM: Unremarkable. No free fluid. No free air. LYMPH NODES: Mildly enlarged peripancreatic lymph nodes BLADDER: Unremarkable. REPRODUCTIVE: Unremarkable. BONES: No acute fracture. OTHER FINDINGS: None. IMPRESSION: Pancreatic cysts and dilated pancreatic duct. Findings suspicious for IPMN Large gallstone. Hypodense liver lesion with focal scarring and retraction etiology uncertain.
[2017-06-11 14:35] LABS: HEPATITIS A TOTAL ANTIBODY POS (NEGATIVE)
[2017-06-12 11:00] LABS: HB E AG Nonreactive (Nonreactive)
--- NOTE | 2017-06-12 18:43 | PQF GENQUE ---
06/12/17 Dr. Mills, Please clarify principal diagnosis--reason for admission after study? Etiology of abdominal pain (acute pancreatitis? pancreatic tumor? other?). Thank you. Clarification of your documentation is requested to better reflect the severity of illness and intensity of treatment of your patient. Indicators present [] Specify: [] [] Specify: [] [] Specify: [] [] Specify: [] Location in the medical record that reflects the above clinical findings: [] Treatment Provided: [] PHYSICIAN'S RESPONSE pancrestitis and as per radiologist a mass Based on your medical judgment of the clinical indicators outlined above please clarify the following: [] Practitioner response [] If unable to determine, please check the box, sign and date. Present On Admission (POA) Indicator: [] Present at the time of admission [] Not present at the time of admission [] Clinically Undetermined In responding to this query, please exercise your independent professional judgment. The fact that a question is asked does not imply that any particular answer is desired or expected. Thank you for your clarification on this documentation. If you have any questions please call:[ ] * Thank you, [ ] client hr manager MARIE
== END 2017-06-11 16:40 | disposition home or self-care (01) | DRG 440 ==
LOC: ED 19:30 → ERH 23:45 → 5RNO 06-10 02:24
PROVIDERS: ADMIT Family Medicine; ATTEND Family Medicine
DX: K85.90 Acute pancreatitis without necrosis or infection, unspecified (principal); K86.9 Disease of pancreas, unspecified; B18.2 Chronic viral hepatitis C; E11.9 Type 2 diabetes mellitus without complications; K21.9 Gastro-esophageal reflux disease without esophagitis; I10 Essential (primary) hypertension; K59.09 Other constipation; K80.20 Calculus of gallbladder without cholecystitis without obstruction; Z82.49 Family history of ischemic heart disease and other diseases of the circulatory system; Z83.3 Family history of diabetes mellitus; Z85.05 Personal history of malignant neoplasm of liver; Z87.891 Personal history of nicotine dependence; Z88.6 Allergy status to analgesic agent; Z87.892 Personal history of anaphylaxis; R40.2412 Glasgow coma scale score 13-15, at arrival to emergency department

== ENCOUNTER 2018-08-01 04:14 | Inpatient (IN) | payer OTHER, MEDICARE ==
[2018-08-01 04:23] VITALS: BMI 24.3
[2018-08-01] MEDS ORDERED: Morphine 2 mg/ml ISec IVP STA ×3 (04:36→05:50)
--- NOTE | 2018-08-01 04:41 | ED PDOC ---
Arrival/HPI - General Historian: Patient - History of Present Illness Narrative History of Present Illness (Text): 08/01/18 04:37 Patient is a 68-year-old M with PMH of liver cancer (s/p chemoembolizationx1 on 09/2016), Hepatitis C (untreated), DM, and HTN who presents with abdominal pain that started earlier this morning. Patient is unable to give history at this time. Patient's family is at bedside and with permission of the Patient, is assisting in providing history. Patient had "stomach virus" for 3 days that started earlier this week with non-bloody vomitus. Patient admits to denies diarrhea, fever, chills, and/or chest pain. DR. BARROW Time/Duration: 24 hours Symptom Course: Unchanged Severity Level: Severe <Tran Hollis - Last Filed: 08/01/18 06:49> <Gregg Miller - Last Filed: 08/01/18 06:57> - General Chief Complaint: Abdominal Pain Time Seen by Provider: 08/01/18 04:23 Past Medical History - Provider Review Nursing Documentation Reviewed: Yes - Infectious Disease Hx of Infectious Diseases: None - Cardiac Hx Cardiac Disorders: Yes Hx Hypertension: Yes - Pulmonary Hx Respiratory Disorders: No - Neurological Hx Neurological Disorder: No - HEENT Hx HEENT Disorder: Yes (X GLASSES) - Renal Hx Renal Disorder: No - Endocrine/Metabolic Hx Endocrine Disorders: Yes Hx Diabetes Mellitus Type 2: Yes - Hematological/Oncological Hx Blood Disorders: Yes Hx Cancer: Yes (liver) - Integumentary Hx Dermatological Disorder: No - Musculoskeletal/Rheumatological Hx Musculoskeletal Disorders: No Hx Falls: No - Gastrointestinal Hx Gastrointestinal Disorders: No - Genitourinary/Gynecological Hx Genitourinary Disorders: No - Psychiatric Hx Psychophysiologic Disorder: No Hx Depression: No Hx Emotional Abuse: No Hx Physical Abuse: No Hx Substance Use: No - Anesthesia Hx Anesthesia: No - Suicidal Assessment Feels Threatened In Home Enviroment: No <Tran Hollis - Last Filed: 08/01/18 06:49> Family/Social History - Physician Review Nursing Documentation Reviewed: Yes Family/Social History: Unknown Family HX Smoking Status: Never Smoked Hx Alcohol Use: No Hx Substance Use: No Hx Substance Use Treatment: No <Tran Hollis - Last Filed: 08/01/18 06:49> Allergies/Home Meds <YanTran malin - Last Filed: 08/01/18 06:49> <Gregg Miller - Last Filed: 08/01/18 06:57> Allergies/Adverse Reactions: Allergies pentazocine [From Joana] Allergy (Verified 06/09/17 19:39) ANAPHYLAXIS Home Medications: Home Meds Medication Instructions Recorded Confirmed Amlodipine Besylate/Benazepr 1 cap PO DAILY 01/05/12 06/09/17 [Lotrel 10 mg-20 mg] Glyburide/Metformin Hydrochl 1 tab PO BID 01/05/12 06/09/17 [Glucovance 5 mg-500 mg] Methadone 70 mg PO DAILY 01/05/12 06/09/17 Insulin Glargine,Hum.rec.anlog 40 units SC HS 06/09/17 06/09/17 [Basaglar Kwikpen U-100] Review of Systems - Review of Systems Systems not reviewed;Unavailable: Acuity of Condition <Tran Hollis - Last Filed: 08/01/18 06:49> Physical Exam Vital Signs Temp Pulse Resp BP Pulse Ox 08/01/18 04:34 98.4 F 76 18 152/76 H 100 Temperature: Afebrile Blood Pressure: Hypertensive Pulse: Regular Respiratory Rate: Normal Appearance: Positive for: Other (writhing in pain ) Pain Distress: Moderate - Systems Exam Head: Present: Atraumatic, Normocephalic Pupils: Present: PERRL Conjunctiva: Present: Normal Mouth: Present: Moist Mucous Membranes Neck: Present: Normal Range of Motion. No: Meningeal Signs Respiratory/Chest: Present: Clear to Auscultation, Good Air Exchange. No: Respiratory Distress, Accessory Muscle Use Cardiovascular: Present: Regular Rate and Rhythm, Normal S1, S2. No: Murmurs Abdomen: Present: Tenderness, Normal Bowel Sounds. No: Distention, Peritoneal Signs, McBurney's Point Tender Upper Extremity: Present: Normal Inspection, NORMAL PULSES. No: Cyanosis, Edema Lower Extremity: Present: Normal Inspection, NORMAL PULSES. No: Edema, CALF TENDERNESS Neurological: Present: GCS=15 Skin: Present: Warm, Dry, Normal Color. No: Rashes Psychiatric: Present: Alert <Tran Hollis - Last Filed: 08/01/18 06:49> Vital Signs Temp Pulse Resp BP Pulse Ox 08/01/18 06:30 98 F 77 14 145/60 95 08/01/18 04:34 98.4 F 76 18 152/76 H 100 <Gregg Miller - Last Filed: 08/01/18 06:57> Medical Decision Making ED Course and Treatment: 08/01/18 04:44 IMPRESSION This is a 68yo M who presents with worsening abdominal pain x3 days ASSESSMENT Rule-out SBO Rule-out Aortic dissection Rule-out Pancreatitis PLAN CBC CMP Lipase Troponin EKG CT abdomen/pelvis with IV contrast ABD ultrasound Administered: Morphine 4mg IVP IVF Zofran 4mg IVP 08/01/18 05:24 Patient continues to vehemently express that he is in pain. Morphine 4mg IVP STAT ordered. - RAD Interpretation Radiology Orders: 08/01/18 04:33 ANGIO ABDOMEN & PELVIS W/CONT [CT] Stat ABDOMEN COMPLETE [US] Stat - Medication Orders Current Medication Orders: Morphine Sulfate (Morphine) 2 mg IVP STAT STA Stop: 08/01/18 04:37 <Tran Hollis - Last Filed: 08/01/18 06:49> ED Course and Treatment: 08/01/18 06:50 CT Abd/Pelvis CAN OF THE ABDOMEN AND PELVIS WITHOUT ORAL OR IV CONTRAST. CLINICAL INDICATION: Abdominal pain. TECHNIQUE: Axial and reformatted sagittal and coronal images of the abdomen pelvis obtained without IV contrast administration. COMPARISON: None. FINDINGS: The visualized lung bases are unremarkable. Mild irregularity of the unenhanced liver. Cholelithiasis with distended, thickened gallbladder and moderately dilated extrahepatic biliary system. Normal unenhanced spleen. Normal pancreas. Normal bilateral adrenal glands. Normal size of the right kidney. There is no right renal mass. There are no right renal calculi. There is no right hydronephrosis. Normal visualized right ureter. Normal size of the left kidney. There is no left renal mass. There are no left renal calculi. There is no left hydronephrosis. Normal visualized left ureter. 1.5 cm left renal cyst. Normal visualized stomach. Normal small intestine. Uncomplicated diverticulosis of moderate amount of fecal residue in the colon. The appendix is visualized and appears normal. There is no demonstrated peritoneal fluid. Calcified atheromatous plaques in the abdominal aorta. Normal inferior vena cava. Normal retroperitoneum. Normal urinary bladder. There is no pelvic mass lesion or lymphadenopathy. There is no pelvic fluid. Normal abdominal wall. Normal osseous structures. IMPRESSION: Cholelithiasis. Distended gallbladder. Diffuse thickening of the gallbladder. Moderately dilated proximal aspect of the common bile duct. Sonographic evaluation is suggested. Constipation. Mild multifocal irregularity of the hepatic contour, probably chronic. 08/01/18 06:56 Patient seen and evaluated with medical art therapist/agree with findings and treatment.Case was discussed with PMD .Accepts to his service.Request / on consult. - Lab Interpretations Lab Results: Troponin I < 0.01 ng/mL 08/01/18 04:35 Total Bilirubin 2.3 mg/dL (0.2-1.3) H 08/01/18 04:35 AST 287 U/L (17-59) H D 08/01/18 04:35 ALT 412 U/L (7-56) H 08/01/18 04:35 Alkaline Phosphatase 287 U/L (38-126) H D 08/01/18 04:35 Total Protein 8.4 g/dL (5.8-8.3) H 08/01/18 04:35 Albumin 4.3 g/dL (3.0-4.8) 08/01/18 04:35 Globulin 4.1 gm/dL 08/01/18 04:35 Albumin/Globulin Ratio 1.0 (1.1-1.8) L 08/01/18 04:35 Lipase 226 U/L (23-300) 08/01/18 04:35 Urine Color Yellow (YELLOW) 08/01/18 05:30 Urine Appearance Clear (CLEAR) 08/01/18 05:30 Urine pH 7.0 (4.7-8.0) 08/01/18 05:30 Ur Specific [place] 1.010 (1.005-1.035) 08/01/18 05:30 Urine Protein Negative mg/dL (<30 mg/dL) 08/01/18 05:30 Urine Glucose (UA) >=1000 mg/dL (NEGATIVE) 08/01/18 05:30 Urine Ketones Trace mg/dL (NEGATIVE) H 08/01/18 05:30 Urine Blood Negative (NEGATIVE) 08/01/18 05:30 Urine Nitrate Negative (NEGATIVE) 08/01/18 05:30 Urine Bilirubin Negative (NEGATIVE) 08/01/18 05:30 Urine Urobilinogen 2.0 E.U./dL (<1 E.U./dL) H 08/01/18 05:30 Ur Leukocyte Esterase Negative Ivanna/uL (NEGATIVE) 08/01/18 05:30 - RAD Interpretation Radiology Orders: 08/01/18 05:19 ABDOMEN & PELVIS [ABD & PELVIS W/O PO OR IV CONT] [CT] Stat - Medication Orders Current Medication Orders: Discontinued Medications Sodium Chloride (Sodium Chloride 0.9%) 1,000 mls @ 999 mls/hr IV .Q1H1M STA Stop: 08/01/18 06:20 Last Admin: 08/01/18 04:40 Dose: 999 mls/hr eMAR Start Stop Document 08/01/18 04:40 JOL (Rec: 08/01/18 05:33 JOL [id number]) Intravenous Solution Start Date 08/01/18 Start Time 04:40 End Date 08/01/18 End time 05:41 Total Infusion Time 61 Insulin Human Regular (Humulin R) 8 units SC STAT STA Stop: 08/01/18 06:35 Last Admin: 08/01/18 06:37 Dose: 8 unit MAR Blood Glucose Document 08/01/18 06:37 JOL (Rec: 08/01/18 06:37 JOL [id number]) Blood Glucose Finger Stick Blood Glucose (70-120) 475 Subcutaneous Administrations Document 08/01/18 06:37 JOL (Rec: 08/01/18 06:37 JOL [id number]) Injection Site MAR Injection Site Right Deltoid Charges for Administration # of Subcutaneous Administrations 1 Morphine Sulfate (Morphine) 2 mg IVP STAT STA Stop: 08/01/18 04:37 Last Admin: 08/01/18 04:49 Dose: 2 mg MAR Pain Assessment Document 08/01/18 04:49 JOL (Rec: 08/01/18 04:50 JOL [id number]) Pain Reassessment Is this a pain reassessment? No Sleep Is patient sleeping during reassessment? No Presence of Pain Presence of Pain Yes Pain Scale Used Protocol: PSCALES Pain Scale Used Numeric Location Pain Location Body Site Abdomen Description Intensity of Pain at present 10 Pain Behavior Moaning Crying Restlessness Facial Grimacing Screaming Aggravating Factors None IVP Administration Document 08/01/18 04:49 JOL (Rec: 08/01/18 04:50 JOL [id number]) Charges for Administration # of IVP Administrations 1 Morphine Sulfate (Morphine) 2 mg IVP STAT STA Stop: 08/01/18 04:41 Last Admin: 08/01/18 04:50 Dose: 2 mg MAR Pain Assessment Document 08/01/18 04:50 JOL (Rec: 08/01/18 04:50 JOL [id number]) Pain Reassessment Is this a pain reassessment? No Sleep Is patient sleeping during reassessment? No Presence of Pain Presence of Pain Yes Pain Scale Used Protocol: [facility] Pain Scale Used Numeric Location Pain Location Body Site Abdomen Description Intensity of Pain at present 10 Pain Behavior Moaning Crying Restlessness Facial Grimacing Screaming IVP Administration Document 08/01/18 04:50 JOL (Rec: 08/01/18 04:50 JOL [id number]) Charges for Administration # of IVP Administrations 1 Morphine Sulfate (Morphine) 4 mg IVP STAT STA Stop: 08/01/18 05:24 Last Admin: 08/01/18 05:34 Dose: 4 mg MAR Pain Assessment Document 08/01/18 05:34 JOL (Rec: 08/01/18 05:34 JOL [id number]) Pain Reassessment Is this a pain reassessment? No Sleep Is patient sleeping during reassessment? No Presence of Pain Presence of Pain Yes Pain Scale Used Protocol: [facility] Pain Scale Used Numeric Location Pain Location Body Site Abdomen Description Intensity of Pain at present 7 IVP Administration Document 08/01/18 05:34 JOL (Rec: 08/01/18 05:34 JOL [id number]) Charges for Administration # of IVP Administrations 1 Morphine Sulfate (Morphine) 2 mg IVP STAT STA Stop: 08/01/18 05:51 Last Admin: 08/01/18 05:58 Dose: 2 mg MAR Pain Assessment Document 08/01/18 05:58 JOL (Rec: 08/01/18 05:59 JOL [id number]) Pain Reassessment Is this a pain reassessment? Yes Sleep Is patient sleeping during reassessment? No Presence of Pain Presence of Pain Yes Pain Scale Used Protocol: PSCALES Pain Scale Used Numeric Description Intensity of Pain at present 8 Pain Behavior Moaning Crying Restlessness Facial Grimacing Screaming IVP Administration Document 08/01/18 05:58 JOL (Rec: 08/01/18 05:59 JOL [id number]) Charges for Administration # of IVP Administrations 1 Ondansetron HCl (Zofran Inj) 4 mg IVP STAT STA Stop: 08/01/18 04:44 Last Admin: 08/01/18 04:50 Dose: 4 mg IVP Administration Document 08/01/18 04:50 JOL (Rec: 08/01/18 05:13 JOL [id number]) Charges for Administration # of IVP Administrations 1 <Gregg Miller - Last Filed: 08/01/18 06:57> - PA / MEDICAL DEVICE ENGINEER / Resident Statement / has reviewed & agrees with the documentation as recorded. / has examined the patient and agrees with the treatment plan. <Gregg Miller - Last Filed: 08/01/18 06:57> Disposition/Present on Arrival - Present on Arrival Any Indicators Present on Arrival: No History of DVT/PE: No History of Uncontrolled Diabetes: No Urinary Catheter: No History of Decub. Ulcer: No History Surgical Site Infection Following: None - Disposition Have Diagnosis and Disposition been Completed?: Yes Patient Plan: Admission <Tran Hollis - Last Filed: 08/01/18 06:49> - Present on Arrival Any Indicators Present on Arrival: No History of DVT/PE: No History of Uncontrolled Diabetes: No Urinary Catheter: No History of Decub. Ulcer: No History Surgical Site Infection Following: None - Disposition Disposition Time: 06:51 Patient Plan: Admission <Gregg Miller - Last Filed: 08/01/18 06:57> - Disposition Diagnosis: Acute cholecystitis Disposition: HOSPITALIZED Patient Problems: Current Active Problems Problem Status Onset Acute cholecystitis Acute Condition: GUARDED Forms: [employer] (Armenian)
[2018-08-01] MEDS ORDERED: Morphine 4 mg/ml ISec ONE (04:47)
[2018-08-01 04:50] LABS: BASO # 0.01 K/mm3 (0.0-2.0); BASO % 0.2 % (0.0-3.0); EOS % 0.6 % (1.5-5.0); HEMOGLOBIN 12.9 g/dL (14.0-18.0); LYMPH # 1.5 (1.2-3.4); LYMPH % 23.8 % (22.0-35.0); MEAN CORPUSCULAR HEMOGLOBIN 28.3 pg (25.0-35.0); MEAN CORPUSCULAR HGB CONC 32.9 g/dl (31.0-37.0); MEAN PLATELET VOLUME 11.5 fl (7.0-11.0); MONO # 0.3 (0.1-0.6); MONO % 4.3 % (1.0-6.0); RBC 4.56 10^6/uL (3.5-6.1); RED CELL DISTRIBUTION WIDTH 12.9 % (11.5-14.5); WHITE BLOOD COUNT 6.3 10^3/uL (4.5-11.0)
[2018-08-01 05:10] LABS: TROPONIN I < 0.01 ng/mL
[2018-08-01 05:13] LABS: ALBUMIN 4.3 g/dL (3.0-4.8); ALT/SGPT 412 U/L (7-56); AST/SGOT 287 U/L (17-59); BLOOD UREA NITROGEN 31 mg/dL (7-21); CALCIUM 10.1 mg/dL (8.4-10.5); GFR NON-AFRICAN AMERICAN 50; LIPASE 226 U/L (23-300)
[2018-08-01] MEDS ORDERED: Sodium Chloride 0.9% 1,000 ML IV STA ×2 (05:20→06:51)
[2018-08-01] MEDS ORDERED: Morphine 4 mg/ml ISec IVP STA ×2 (05:23→07:20)
[2018-08-01 05:52] LABS: URINE BILIRUBIN NEGATIVE (NEGATIVE); URINE BLOOD NEGATIVE (NEGATIVE); URINE GLUCOSE (UA) >=1000 mg/dL (NEGATIVE); URINE LEUKOCYTE ESTERASE NEGATIVE Leu/uL (NEGATIVE); URINE PROTEIN NEGATIVE mg/dL (<30 mg/dL)
[2018-08-01 06:04] LABS: URINE APPEARANCE CLEAR (CLEAR); URINE COLOR YELLOW (YELLOW)
[2018-08-01] MEDS ORDERED: Insulin Regular 1 UNITS/0.01 ML ML SC STA (06:34)
[2018-08-01] MEDS ORDERED: Insulin Regular 1 UNITS/0.01 ML ML ONE (06:38)
[2018-08-01] MEDS ORDERED: metroNIDAZOLE IV 500 mg/100 ml 500 MG/100 ML BAG IVPB STA (06:50)
[2018-08-01 08:17] LABS: INR 1.03; PROTHROMBIN TIME 11.6 SECONDS (9.4-12.5)
--- NOTE | 2018-08-01 08:25 | CP.PCM.CON ---
<Jose Manuel Snow - Last Filed: 08/01/18 09:05> History of Present Illness - History of Present Illness History of Present Illness: GI Fellow PGY4, consult note. Jose Ford is a 68M with hx of Hep. C cured last year, HCC s/p chemoembolization, gallstones presenting with acute abdominal pain. The abdominal pain started 3 days ago associated with non-bloody diarrhea. Pepto-bismol did not help. The pain was on and off until yesterday when the pain became constant, 10/10 "burning" located at the RUQ of the abdomen. He denies having this type of discomfort before. He is on methadone at home and currently in significant pain. 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 Past Patient History - Infectious Disease Hx of Infectious Diseases: None - Past Social History Smoking Status: Never Smoked - CARDIAC Hx Cardiac Disorders: Yes Hx Hypertension: Yes - PULMONARY Hx Respiratory Disorders: No - NEUROLOGICAL Hx Neurological Disorder: No - HEENT Hx HEENT Problems: Yes (X GLASSES) - RENAL Hx Chronic Kidney Disease: No - ENDOCRINE/METABOLIC Hx Endocrine Disorders: Yes Hx Diabetes Mellitus Type 2: Yes - HEMATOLOGICAL/ONCOLOGICAL Hx Blood Disorders: Yes Hx Cancer: Yes (liver) - INTEGUMENTARY Hx Dermatological Problems: No - MUSCULOSKELETAL/RHEUMATOLOGICAL Hx Musculoskeletal Disorders: No Hx Falls: No - GASTROINTESTINAL Hx Gastrointestinal Disorders: No - GENITOURINARY/GYNECOLOGICAL Hx Genitourinary Disorders: No - PSYCHIATRIC Hx Psychophysiologic Disorder: No Hx Depression: No Hx Emotional Abuse: No Hx Physical Abuse: No Hx Substance Use: No - SURGICAL HISTORY Hx Surgeries: No - ANESTHESIA Hx Anesthesia: No Meds Allergies/Adverse Reactions: Allergies Allergy/AdvReac Type Severity Reaction Status Date / Time pentazocine [From Joana] Allergy ANAPHYLAXIS Verified 06/09/17 19:39 - Medications Medications: Current Medications Ceftriaxone Sodium (Rocephin 1 Gram Ivpb) 1 gm in 100 mls @ 100 mls/hr IVPB DAILY [facility]; Protocol Sodium Chloride (Sodium Chloride 0.9%) 1,000 mls @ 100 mls/hr IV .Q10H STA Stop: 08/01/18 16:50 Physical Exam - Constitutional Appears: Non-toxic, No Acute Distress - Head Exam Head Exam: ATRAUMATIC, NORMAL INSPECTION - Eye Exam Eye Exam: EOMI, Normal appearance - ENT Exam ENT Exam: Mucous Membranes Moist, Normal Exam - Respiratory Exam Respiratory Exam: Clear to Auscultation Bilateral, NORMAL BREATHING PATTERN - Cardiovascular Exam Cardiovascular Exam: REGULAR RHYTHM, +S1, +S2 - GI/Abdominal Exam GI & Abdominal Exam: Normal Bowel Sounds, Soft, Tenderness Additional comments: significant RUQ pain to mild pressure - Extremities Exam Extremities exam: Positive for: normal inspection. Negative for: pedal edema - Neurological Exam Neurological exam: Alert, CN II-XII Intact, Oriented x3 - Psychiatric Exam Psychiatric exam: Normal Affect, Normal Mood - Skin Skin Exam: Normal Color, Warm Results - Vital Signs Recent Vital Signs: Last Vital Signs Temp 98 F 08/01/18 06:30 Pulse 77 08/01/18 06:30 Resp 14 08/01/18 06:30 BP 145/60 08/01/18 06:30 Pulse Ox 95 08/01/18 06:30 - Labs Result Diagrams: 08/01/18 04:35 08/01/18 04:35 Labs: Laboratory Results - last 24 hr 08/01/18 08/01/18 08/01/18 04:35 04:35 05:30 WBC 6.3 RBC 4.56 Hgb 12.9 L Hct 39.2 L MCV 86.0 MCH 28.3 MCHC 32.9 RDW 12.9 Plt Count 168 MPV 11.5 H Neut % (Auto) 71.1 H Lymph % (Auto) 23.8 [place] % (Auto) 4.3 Eos % (Auto) 0.6 L Baso % (Auto) 0.2 Lymph # (Auto) 1.5 [place] # (Auto) 0.3 Eos # (Auto) 0.0 Baso # (Auto) 0.01 Absolute Neuts (auto) 4.46 PT INR Sodium 134 Potassium 4.6 Chloride 97 L Carbon Dioxide 25 Anion Gap 17 BUN 31 H Creatinine 1.4 Est GFR ( Amer) > 60 Est GFR (Non-Af Amer) 50 Random Glucose 513 H* D Calcium 10.1 Total Bilirubin 2.3 H AST 287 H D ALT 412 H Alkaline Phosphatase 287 H D Troponin I < 0.01 Total Protein 8.4 H Albumin 4.3 Globulin 4.1 Albumin/Globulin Ratio 1.0 L Lipase 226 Urine Color Yellow Urine Appearance Clear Urine pH 7.0 Ur Specific [place] 1.010 Urine Protein Negative Urine Glucose (UA) >=1000 Urine Ketones Trace H Urine Blood Negative Urine Nitrate Negative Urine Bilirubin Negative Urine Urobilinogen 2.0 H Ur Leukocyte Esterase Negative 08/01/18 07:22 WBC RBC Hgb Hct MCV MCH MCHC RDW Plt Count MPV Neut % (Auto) Lymph % (Auto) [place] % (Auto) Eos % (Auto) Baso % (Auto) Lymph # (Auto) [place] # (Auto) Eos # (Auto) Baso # (Auto) Absolute Neuts (auto) PT 11.6 INR 1.03 Sodium Potassium Chloride Carbon Dioxide Anion Gap BUN Creatinine Est GFR ( Amer) Est GFR (Non-Af Amer) Random Glucose Calcium Total Bilirubin AST ALT Alkaline Phosphatase Troponin I Total Protein Albumin Globulin Albumin/Globulin Ratio Lipase Urine Color Urine Appearance Urine pH Ur Specific [place] Urine Protein Urine Glucose (UA) Urine Ketones Urine Blood Urine Nitrate Urine Bilirubin Urine Urobilinogen Ur Leukocyte Esterase Assessment & Plan - Assessment and Plan (Free Text) Assessment: #Acute cholecystitis #HCC s/p chemoembolization #Hep C s/p treatment 2018 #Uncontrolled T2DM #HTN #Chronic methadone with constipation. PLAN: -CT and U/S reviewed. Gallstones present, GB thickened with pericholestatic fluid. CBD dilated, no obvious stone. -MRCP w/o contrast to r/o CBD stone in setting of elevated total bilirubin. -Continue abx, follow up cultures -Pain management per primary. Will order 1x dose dilaudid. He will likely need increased pain meds given chronic methadone use. -Bowel regimen when stable. -NPO -Pending surgical evaluation -Pending INR Case discussed with Dr. Bill, see attestation. - Date & Time Date: 08/01/18 Time: 08:26 <West iBll Y - Last Filed: 08/01/18 09:24> Meds - Medications Medications: Current Medications Ceftriaxone Sodium (Rocephin 1 Gram Ivpb) 1 gm in 100 mls @ 100 mls/hr IVPB DAILY [facility]; Protocol Sodium Chloride (Sodium Chloride 0.9%) 1,000 mls @ 100 mls/hr IV .Q10H STA Stop: 08/01/18 16:50 Last Admin: 08/01/18 08:18 Dose: 100 mls/hr Results - Vital Signs Recent Vital Signs: Last Vital Signs Temp 97.5 F L 08/01/18 08:49 Pulse 77 08/01/18 08:49 Resp 16 08/01/18 08:49 BP 153/74 H 08/01/18 08:49 Pulse Ox 100 08/01/18 08:49 - Labs Result Diagrams: 08/01/18 04:35 08/01/18 04:35 Labs: Laboratory Results - last 24 hr 08/01/18 08/01/18 08/01/18 04:35 04:35 05:30 WBC 6.3 RBC 4.56 Hgb 12.9 L Hct 39.2 L MCV 86.0 MCH 28.3 MCHC 32.9 RDW 12.9 Plt Count 168 MPV 11.5 H Neut % (Auto) 71.1 H Lymph % (Auto) 23.8 [place] % (Auto) 4.3 Eos % (Auto) 0.6 L Baso % (Auto) 0.2 Lymph # (Auto) 1.5 [place] # (Auto) 0.3 Eos # (Auto) 0.0 Baso # (Auto) 0.01 Absolute Neuts (auto) 4.46 PT INR Sodium 134 Potassium 4.6 Chloride 97 L Carbon Dioxide 25 Anion Gap 17 BUN 31 H Creatinine 1.4 Est GFR ( Amer) > 60 Est GFR (Non-Af Amer) 50 Random Glucose 513 H* D Calcium 10.1 Total Bilirubin 2.3 H AST 287 H D ALT 412 H Alkaline Phosphatase 287 H D Troponin I < 0.01 Total Protein 8.4 H Albumin 4.3 Globulin 4.1 Albumin/Globulin Ratio 1.0 L Lipase 226 Urine Color Yellow Urine Appearance Clear Urine pH 7.0 Ur Specific [place] 1.010 Urine Protein Negative Urine Glucose (UA) >=1000 Urine Ketones Trace H Urine Blood Negative Urine Nitrate Negative Urine Bilirubin Negative Urine Urobilinogen 2.0 H Ur Leukocyte Esterase Negative 08/01/18 07:22 WBC RBC Hgb Hct MCV MCH MCHC RDW Plt Count MPV Neut % (Auto) Lymph % (Auto) [place] % (Auto) Eos % (Auto) Baso % (Auto) Lymph # (Auto) [place] # (Auto) Eos # (Auto) Baso # (Auto) Absolute Neuts (auto) PT 11.6 INR 1.03 Sodium Potassium Chloride Carbon Dioxide Anion Gap BUN Creatinine Est GFR ( Amer) Est GFR (Non-Af Amer) Random Glucose Calcium Total Bilirubin AST ALT Alkaline Phosphatase Troponin I Total Protein Albumin Globulin Albumin/Globulin Ratio Lipase Urine Color Urine Appearance Urine pH Ur Specific [place] Urine Protein Urine Glucose (UA) Urine Ketones Urine Blood Urine Nitrate Urine Bilirubin Urine Urobilinogen Ur Leukocyte Esterase Attending/Attestation - Attestation I have personally seen and examined this patient.: Yes I have fully participated in the care of the patient.: Yes I have reviewed all pertinent clinical information: Yes Notes (Text): 08/01/18 09:17 I have seen and examined patient with GI fellow. Agree with the above documentation with the following additions. In brief, this is a 68 year old male with history of HCV (supposedly treated), HCC s/p chemoembolization, DM, HTN who presents to hospital with complaint of abdominal pain which started 3 days ago. He describes a sharp epigastric pain, 10/10 intensity radiating to RUQ which was associated with nausea and loose bowel movements. He attempted to use pepto bismol without benefit and came to hospital. He denies vomiting, fever/chills, weight loss, jaundice. He apparently follows up with Hepatology team at [facility] given prior history of HCC. Additional physical exam: Abdomen: no palpable hepato/splenomegaly History of HCV and HCC s/p chemoembolization DM/HTN Abdominal pain Transaminitis CT and US imaging reviewed by me showing hepatic mass lesion, markedly distended GB with cholelithiasis, dilated CBD without presence of filling defects - NPO - Continue with antibiotic therapy - Obtain blood cultures - Continue to monitor LFTs - Follow up surgical recommendations - Given presence of liver lesion, obtain AFP, viral hepatitis panel, HCV viral load - Given dilated CBD, would also obtain MRCP for further evaluation to rule out choledocholithiasis - Will continue to monitor patient clinical course
[2018-08-01] MEDS ORDERED: HYDROmorphone 2 mg/ml ISec IVP STA (09:25)
--- NOTE | 2018-08-01 10:21 | CT ---
Date of service: 08/01/2018 PROCEDURE: CT Abdomen and Pelvis without intravenous contrast HISTORY: abdominal pain COMPARISON: Comparison is made to the previous study dated 06/09/[address] pancreatic protocol 06/11/2017 dated TECHNIQUE: Axial and reformatted coronal and sagittal CT images of the abdomen and pelvis were obtained without IV or oral contrast administration.. Contrast dose: 0 Radiation dose: Total exam DLP = 476.99 mGy-cm. This CT exam was performed using one or more of the following dose reduction techniques: Automated exposure control, adjustment of the mA and/or kV according to patient size, and/or use of iterative reconstruction technique. FINDINGS: LOWER THORAX: No evidence of acute pulmonary disease. The heart is enlarged. LIVER: Again seen is focal heterogeneous slightly low-attenuation lesion in the right liver lobe adjacent to the gallbladder fossa contains punctate of calcification and associated with focal retraction of the right liver border. The lesion appears mildly larger with the foci of calcification and the focal retraction are also larger compared to the prior study dated 06/11/2018. The possibility of neoplasm is not totally excluded. The heart is mildly enlarged. GALLBLADDER AND BILE DUCTS: The gallbladder is uodzcr-me-ymiwqccnjk distended contains large gallstones and demonstrate [id number] diffuse wall thickening. No evidence of pericholecystic fluid or inflammatory changes. The proximal common bile duct and the common hepatic duct are mildly dilated. PANCREAS: The pancreas is small in size. Again noted is low-attenuation cystic lesion at the anterior aspect of the pancreatic body measures 3.5 centimeter in the largest transverse diameter which appears larger compared to the prior CT dated 06/11/2017. The main pancreatic duct is dilated. The previously seen low-attenuation cystic lesion at the pancreatic head in the previous study is not clearly seen in this exam. However there is heterogeneous slightly low-attenuation lesion inferior to pancreatic head measures 2.2 centimeter unclear if it represent pancreatic head mass or adjacent lymphadenopathy. SPLEEN: Unremarkable. ADRENALS: Unremarkable. No mass. KIDNEYS AND URETERS: No evidence of nephrolithiasis or hydronephrosis. Again seen is low-attenuation cystic lesion at the upper pole of the left kidney measures 3 centimeter. Again seen is low-attenuation lesion at the lower pole of the right kidney measures 2.5 centimeter. VASCULATURE: Unremarkable. No aortic aneurysm. Diffuse atherosclerotic vascular calcification noted. BOWEL: Unremarkable. No obstruction. No gross mural thickening. APPENDIX: Unremarkable. Normal appendix. PERITONEUM: Unremarkable. No free fluid. No free air. LYMPH NODES: No evidence of retroperitoneal lymphadenopathy. BLADDER: Mild urinary bladder wall thickening is noted. REPRODUCTIVE: The prostate is mildly enlarged. BONES: No acute fracture. OTHER FINDINGS: None. IMPRESSION: Distended gallbladder contains large gallstone and demonstrates uvgk-qi-amxyinld diffuse wall thickening without evidence of pericholecystic fluid or inflammatory changes. Heterogeneous slightly low-attenuation lesion contains foci of calcification again noted at the right liver lobe associated with focal retraction of the liver border. The possibility of neoplasm is not totally excluded. Low-attenuation cystic lesion at the pancreatic body is again noted appears larger compared to the prior exam. Previously noted pancreatic head low-attenuation lesion in the previous study is not clearly seen in the current exam. There is low-attenuation lesion just inferior to the pancreatic head may represent pancreatic lesion versus adjacent lymphadenopathy. Further evaluation of the pancreas by MRI or enhanced CT is suggested. Preliminary report contains concordant findings was submitted by [facility] Radiology.
[2018-08-01] MEDS: cefTRIAXone 1 gm 1 GM/100 ML BAG IVPB SCH (10:31)
[2018-08-01] MEDS: Insulin Reg-MEDIUM-Coverage SC SCH ×3 (12:13→22:45)
--- NOTE | 2018-08-01 13:23 | US ---
Date of service: 08/01/2018 HISTORY: r/o cbd stone, hx of HCC COMPARISON: Comparison is made with the previous CT of the abdomen and pelvis dated 08/01/2018 TECHNIQUE: Sonographic evaluation of the abdomen. FINDINGS: LIVER: Measures 14 cm. Slightly heterogeneous echogenicity of the liver parenchyma. There is heterogeneous echogenicity mass lesion at liver measures 1.6 x 1.5 centimeter. There is also another mass lesion in the right liver lobe measures 2 x 1.5 centimeter. GALLBLADDER: The gallbladder is distended contains large gallstone and sludge. The gallbladder wall thickness is 2.5 millimeter. COMMON BILE DUCT: Measures 13.2 mm. No stones. No dilatation. PANCREAS: Unremarkable as visualized. No mass. No ductal dilatation. RIGHT KIDNEY: Measures 10.8 x 5.2 x 5.5cm. Normal echogenicity. No calculus, mass, or hydronephrosis. LEFT KIDNEY: Measures 10 x 5.9 x 6.3cm. Normal echogenicity. No calculus, mass, or hydronephrosis. There is a cyst seen in the left kidney measures 2.8 x 2.4 x 1.9 centimeter contains thin septation. SPLEEN: Normal in size and contour. No mass. AORTA: Obscured by overlying bowel gas. IVC: Obscured by overlying bowel gas. OTHER FINDINGS: None. IMPRESSION: Suboptimal study. At least 2 heterogeneous soft tissue mass lesion in the liver noted. Further evaluation by other modalities such as enhanced CT or MRI is suggested. Distended gallbladder contains large stone and sludge. 2.8 centimeter cyst in the left kidney contains thin septation.
[2018-08-01] MEDS: Sodium Chloride 0.9% 1,000 ML IV SCH (17:49)
--- NOTE | 2018-08-01 17:55 | CP.PCM.CON ---
History of Present Illness - History of Present Illness History of Present Illness: Surgery CC: epigastric pain 67 years old male, with hx of liver cancer (s/p chemoembolizationx1 on 09/2016), Hepatitis C , DM, HTN, presents for epigastric pain. He describes it as achy, intermittent, associated with food, and has associated nausea. Pt had one dry heaving episode. Denies vomiting, diarrhea, brbpr, change in bowel habits, hematochezia, melena. Pt normally has intermittent constipation, he attributes it to his daily 70mg methadone. Denies recent travel. Pt represented in the past with similar sxs. received Protonix 40 mg IVx1 and zofran [address] abd pelvis showed irregularity within head of pancreas, mod dilatation of pancreatic duct. enlarged lymph nodes within pancreaticoduodenal chain, largest one measuring 15 mm. Gallstones and sludge within gallbladder, minimally distended. pt states that his pain is minimal and is hungry. This admissions, CT and US shows large gallstone w thicken GB wall. CBD 13mm. multiple liver lesions. Pt follows up with Dr Lazar (interventional radiology) and Dr latham at [place]. His last MRI abdomen was on 05/20/2017, which showed no further growth. 12 point ROS obtained and negative except as noted per HPI. PMH: Hepatitis C, Liver Cancer (diagnosed 08/2016; chemoembolization x1 on 08/2016 at [place]. Latest MRI 05/2017 shows no further growth), DM, HTN PSH: chemoembolization for HCC All: Pentazocine FH: DM. Denies pancreatic cancer, gastric or colon cancer. SH: Former IV drug user. Denies alcohol use in lifetime. Former smoker, quit 20 years ago; previously 1 ppd x 5 years. Review of Systems - Review of Systems Review of Systems: See HPI Past Patient History - Infectious Disease Hx of Infectious Diseases: None - Past Social History Smoking Status: Never Smoked - CARDIAC Hx Cardiac Disorders: Yes Hx Hypertension: Yes - PULMONARY Hx Respiratory Disorders: No - NEUROLOGICAL Hx Neurological Disorder: No - HEENT Hx HEENT Problems: Yes (X GLASSES) - RENAL Hx Chronic Kidney Disease: No - ENDOCRINE/METABOLIC Hx Endocrine Disorders: Yes Hx Diabetes Mellitus Type 2: Yes - HEMATOLOGICAL/ONCOLOGICAL Hx Blood Disorders: Yes Hx Cancer: Yes (liver) - INTEGUMENTARY Hx Dermatological Problems: No - MUSCULOSKELETAL/RHEUMATOLOGICAL Hx Falls: No - GASTROINTESTINAL Hx Gastrointestinal Disorders: No - GENITOURINARY/GYNECOLOGICAL Hx Genitourinary Disorders: No - PSYCHIATRIC Hx Psychophysiologic Disorder: No Hx Depression: No Hx Emotional Abuse: No Hx Physical Abuse: No - SURGICAL HISTORY Hx Surgeries: No - ANESTHESIA Hx Anesthesia: No Meds Allergies/Adverse Reactions: Allergies Allergy/AdvReac Type Severity Reaction Status Date / Time pentazocine [From Joana] Allergy ANAPHYLAXIS Verified 06/09/17 19:39 - Medications Medications: Current Medications Amlodipine Besylate (Norvasc) 10 mg PO DAILY [facility] Ceftriaxone Sodium (Rocephin 1 Gram Ivpb) 1 gm in 100 mls @ 100 mls/hr IVPB DAILY [facility]; Protocol Last Admin: 08/01/18 10:31 Dose: 100 mls/hr Metronidazole (Flagyl) 500 mg in 100 mls @ 100 mls/hr IVPB Q8 [facility]; Protocol Sodium Chloride (Sodium Chloride 0.9%) 1,000 mls @ 100 mls/hr IV .Q10H [facility] Last Admin: 08/01/18 17:49 Dose: 100 mls/hr Insulin Human Regular (Humulin R Med) 0 units SC ACHS [facility]; Protocol Last Admin: 08/01/18 17:46 Dose: Not Given Lisinopril (Zestril) 20 mg PO DAILY [facility] Methadone HCl (Methadone) 70 mg PO DAILY [facility] Last Admin: 08/01/18 12:13 Dose: 70 mg Morphine Sulfate (Morphine) 4 mg IVP Q3H PRN PRN Reason: Pain, moderate (4-7) Ondansetron HCl (Zofran Inj) 4 mg IVP Q6H PRN PRN Reason: Nausea/Vomiting Pantoprazole Sodium (Protonix Inj) 40 mg IVP DAILY@0600 [facility] Physical Exam - Constitutional Appears: No Acute Distress - Head Exam Head Exam: ATRAUMATIC, NORMAL INSPECTION, NORMOCEPHALIC - Eye Exam Eye Exam: EOMI, Normal appearance, PERRL, Scleral icterus Pupil Exam: NORMAL ACCOMODATION, PERRL - ENT Exam ENT Exam: Mucous Membranes Moist - Neck Exam Neck exam: Positive for: Normal Inspection - Respiratory Exam Respiratory Exam: NORMAL BREATHING PATTERN - Cardiovascular Exam Cardiovascular Exam: REGULAR RHYTHM - GI/Abdominal Exam GI & Abdominal Exam: Soft, Tenderness. absent: Distended, Firm, Guarding, Hernia, Mass, Rebound, Rigid Additional comments: RUQ and epigatric area TTP - Exam Exam: NORMAL INSPECTION - Extremities Exam Extremities exam: Positive for: full ROM, normal inspection - Back Exam Back exam: NORMAL INSPECTION - Neurological Exam Neurological exam: Alert, CN II-XII Intact, Normal Gait, Oriented x3, Reflexes Normal - Psychiatric Exam Psychiatric exam: Normal Affect, Normal Mood - Skin Skin Exam: Dry, Intact, Normal Color, Warm Results - Vital Signs Recent Vital Signs: Last Vital Signs Temp 98 F 08/01/18 14:00 Pulse 67 08/01/18 14:00 Resp 18 08/01/18 14:00 BP 144/73 08/01/18 14:00 Pulse Ox 97 08/01/18 14:00 - Labs Result Diagrams: 08/01/18 04:35 08/01/18 04:35 Labs: Laboratory Results - last 24 hr 08/01/18 08/01/18 08/01/18 04:35 04:35 05:30 WBC 6.3 RBC 4.56 Hgb 12.9 L Hct 39.2 L MCV 86.0 MCH 28.3 MCHC 32.9 RDW 12.9 Plt Count 168 MPV 11.5 H Neut % (Auto) 71.1 H Lymph % (Auto) 23.8 [place] % (Auto) 4.3 Eos % (Auto) 0.6 L Baso % (Auto) 0.2 Lymph # (Auto) 1.5 [place] # (Auto) 0.3 Eos # (Auto) 0.0 Baso # (Auto) 0.01 Absolute Neuts (auto) 4.46 PT INR Sodium 134 Potassium 4.6 Chloride 97 L Carbon Dioxide 25 Anion Gap 17 BUN 31 H Creatinine 1.4 Est GFR ( Amer) > 60 Est GFR (Non-Af Amer) 50 POC Glucose (mg/dL) Random Glucose 513 H* D Calcium 10.1 Total Bilirubin 2.3 H AST 287 H D ALT 412 H Alkaline Phosphatase 287 H D Troponin I < 0.01 Total Protein 8.4 H Albumin 4.3 Globulin 4.1 Albumin/Globulin Ratio 1.0 L Lipase 226 Alpha Fetoprotein Urine Color Yellow Urine Appearance Clear Urine pH 7.0 Ur Specific [place] 1.010 Urine Protein Negative Urine Glucose (UA) >=1000 Urine Ketones Trace H Urine Blood Negative Urine Nitrate Negative Urine Bilirubin Negative Urine Urobilinogen 2.0 H Ur Leukocyte Esterase Negative 08/01/18 08/01/18 08/01/18 07:22 09:00 12:04 WBC RBC Hgb Hct MCV MCH MCHC RDW Plt Count MPV Neut % (Auto) Lymph % (Auto) [place] % (Auto) Eos % (Auto) Baso % (Auto) Lymph # (Auto) [place] # (Auto) Eos # (Auto) Baso # (Auto) Absolute Neuts (auto) PT 11.6 INR 1.03 Sodium Potassium Chloride Carbon Dioxide Anion Gap BUN Creatinine Est GFR ( Amer) Est GFR (Non-Af Amer) POC Glucose (mg/dL) 309 H Random Glucose Calcium Total Bilirubin AST ALT Alkaline Phosphatase Troponin I Total Protein Albumin Globulin Albumin/Globulin Ratio Lipase Alpha Fetoprotein 2.5 Urine Color Urine Appearance Urine pH Ur Specific [place] Urine Protein Urine Glucose (UA) Urine Ketones Urine Blood Urine Nitrate Urine Bilirubin Urine Urobilinogen Ur Leukocyte Esterase 08/01/18 16:15 WBC RBC Hgb Hct MCV MCH MCHC RDW Plt Count MPV Neut % (Auto) Lymph % (Auto) [place] % (Auto) Eos % (Auto) Baso % (Auto) Lymph # (Auto) [place] # (Auto) Eos # (Auto) Baso # (Auto) Absolute Neuts (auto) PT INR Sodium Potassium Chloride Carbon Dioxide Anion Gap BUN Creatinine Est GFR ( Amer) Est GFR (Non-Af Amer) POC Glucose (mg/dL) 134 H Random Glucose Calcium Total Bilirubin AST ALT Alkaline Phosphatase Troponin I Total Protein Albumin Globulin Albumin/Globulin Ratio Lipase Alpha Fetoprotein Urine Color Urine Appearance Urine pH Ur Specific [place] Urine Protein Urine Glucose (UA) Urine Ketones Urine Blood Urine Nitrate Urine Bilirubin Urine Urobilinogen Ur Leukocyte Esterase Assessment & Plan - Assessment and Plan (Free Text) Assessment: Cholecystitis -Plan for OR tomorrow -IVF-ABX -PTX -f/u MRCP -trend LFT Seen and case dw dr. Villar
--- NOTE | 2018-08-01 20:21 | CARD ---
APPROVED REPORT Date of service: 08/01/2018 EKG Measurement Heart [id number] <Conclusion> Normal sinus rhythm Normal ECG
[2018-08-01] MEDS: Morphine 4 mg/ml ISec IVP PRN (20:37)
--- NOTE | 2018-08-01 22:38 | HP ---
DATE OF EXAM: 08/01/2018 HISTORY OF PRESENT ILLNESS: I know Don for years. He presents to the emergency room earlier this morning with virus for 3 days with nausea, vomiting, and severe abdominal pain, he could not take it and was brought to the emergency room. He is a 68-year-old man with history of liver cancer, status post chemo embolization in 09/2016. Hepatitis C untreated, diabetes, hypertension, and severe abdominal pain. He is on methadone. He wears glasses. He has got liver cancer. FAMILY HISTORY: No known family history. SOCIAL HISTORY: Nonsmoker. No drinking. No drugs at this time. ALLERGIES: TO [place]. MEDICATIONS: He is on amlodipine, benazepril, glyburide, metformin, methadone, and insulin. REVIEW OF SYSTEMS: No acute vision or hearing changes. No chest pain or shortness of breath. Severe abdominal pain. He does have nauseousness. He did throw up, a little bit better now. No extremity pain. PHYSICAL EXAMINATION: VITAL SIGNS: 98.4 temperature, 76 pulse, 18 respiratory rate, 152/76 blood pressure, and 100% O2 sat. GENERAL: He is in pain at this time. HEENT: His head is atraumatic and normocephalic. Extraocular muscles are intact. Throat is dry. NECK: Supple. HEART: Regular rate. Normal S1 and S2. LUNGS: Decreased breath sounds bilaterally, poor inspiration, but clear to auscultation. ABDOMEN: Tender all over. He just got medicated with morphine, so no guarding or rebound at this time. EXTREMITIES: Have no edema. GCS is 15. Cranial nerves II through XII grossly intact. SKIN: For I could tell is intact with no rashes appreciated. LYMPHS: Thyroid midline. No palpable appreciable lymphadenopathy. LABORATORY DATA: He had both tests done. He had a CAT scan of the abdomen and pelvis, which shows distended gallbladder contains large gallstones, which demonstrates [id number] diffuse wall thickening without evidence of pericholecystic fluid or inflammatory changes heterogeneous like, low attenuation lesion contains foci of calcification again noted at the right liver lobe associated with focal retraction of the liver border possibly of neoplasm, but not totally excluded. Low attenuation cystic lesion at the pancreatic body is again noted appears larger compared to the prior exam. Previously noted pancreatic head, low attenuation lesion, the previous study is not clearly seen in the current exam. There is a low attenuation lesion just inferior to the pancreatic head pancreatic lesion versus adjacent lymphadenopathy. ASSESSMENT AND PLAN: We will have consults with GI, Surgery, and Endocrinology. We will put back on his blood pressure medication, insulin coverage, methadone, morphine as needed, Protonix, he will be on Rocephin and Zofran. I believe the plan is to do a cholecystectomy in the next 24 to 36 hours. Partha Mills DO MTDBelkis
[2018-08-01] MEDS: metroNIDAZOLE IV 500 mg/100 ml 500 MG/100 ML BAG IVPB SCH (22:45)
[2018-08-02] MEDS: Morphine 4 mg/ml ISec IVP PRN ×4 (00:57→23:07)
[2018-08-02] MEDS: metroNIDAZOLE IV 500 mg/100 ml 500 MG/100 ML BAG IVPB SCH ×3 (05:24→23:07)
[2018-08-02] MEDS ORDERED: Pantoprazole 40mg/100mL NS 40 MG/100 ML BAG IVPB SCH (06:00)
--- NOTE | 2018-08-02 07:19 | CP.PCM.PN ---
<Adriana Arvizuchristopher - Last Filed: 08/02/18 09:54> Subjective - Date & Time of Evaluation Date of Evaluation: 08/02/18 Time of Evaluation: 07:40 - Subjective Subjective: PGY-4 GI Fellow Prog Note Pt sleeping in bed when seen this AM. Awoke to voice and stated that abd pain about the same. Denied F/C, N/V. 5 point ROS negative other than stated above Objective - Vital Signs/Intake and Output Vital Signs (last 24 hours): Temp Pulse Resp BP Pulse Ox 98.3 F 65 16 147/83 96 08/01/18 21:45 08/01/18 21:45 08/01/18 21:45 08/01/18 21:45 08/01/18 21:45 - Medications Medications: Current Medications Amlodipine Besylate (Norvasc) 10 mg PO DAILY [facility] Ceftriaxone Sodium (Rocephin 1 Gram Ivpb) 1 gm in 100 mls @ 100 mls/hr IVPB DAILY [facility]; Protocol Last Admin: 08/01/18 10:31 Dose: 100 mls/hr Metronidazole (Flagyl) 500 mg in 100 mls @ 100 mls/hr IVPB Q8 [facility]; Protocol Last Admin: 08/02/18 05:24 Dose: 100 mls/hr Sodium Chloride (Sodium Chloride 0.9%) 1,000 mls @ 100 mls/hr IV .Q10H [facility] Last Admin: 08/01/18 17:49 Dose: 100 mls/hr Insulin Detemir (Levemir) 10 unit SC HS [facility] Insulin Human Lispro (Humalog Low) 0 units SC ACHS [facility]; Protocol Lisinopril (Zestril) 20 mg PO DAILY [facility] Methadone HCl (Methadone) 70 mg PO DAILY [facility] Last Admin: 08/01/18 12:13 Dose: 70 mg Morphine Sulfate (Morphine) 4 mg IVP Q3H PRN PRN Reason: Pain, moderate (4-7) Last Admin: 08/02/18 05:24 Dose: 4 mg Ondansetron HCl (Zofran Inj) 4 mg IVP Q6H PRN PRN Reason: Nausea/Vomiting Last Admin: 08/02/18 06:41 Dose: 4 mg Pantoprazole Sodium (Protonix Inj) 40 mg IVP DAILY@0600 [facility] Last Admin: 08/02/18 06:42 Dose: 40 mg - Labs Labs: 08/01/18 04:35 08/01/18 04:35 PT 11.6 SECONDS (9.4-12.5) 08/01/18 07:22 INR 1.03 08/01/18 07:22 - Constitutional Appears: Well, No Acute Distress - Head Exam Head Exam: ATRAUMATIC, NORMAL INSPECTION - Eye Exam Eye Exam: EOMI. absent: Scleral icterus - ENT Exam ENT Exam: Mucous Membranes Dry. absent: Mucous Membranes Moist - GI/Abdominal Exam GI & Abdominal Exam: Guarding, Soft, Tenderness, Normal Bowel Sounds. absent: Bruit, Distended, Firm, Rigid, Mass, Organomegaly, Pulsatile Mass Additional comments: Abd ttp mostly RUQ with voluntary guarding Assessment and Plan - Assessment and Plan (Free Text) Assessment: #Acute cholecystitis: CT and U/S reviewed. Gallstones present, GB thickened with pericholestatic fluid. CBD dilated, no obvious stone. #HCC s/p chemoembolization: Somewhat reassuring that AFP not elevated but does not r/o HCC #Hep C s/p treatment 2017 #Uncontrolled T2DM #HTN #Chronic methadone with constipation. Plan: -MRCP w/o contrast pending -Gen Surg plans for OR today pending above -Continue abx, follow up cultures -Pain management per primary -Await HCV RNA lvl; HAV and HBV neg -Bowel regimen able -Diet per Surgery/Primary -Will need f/u with his [facility] Hepatology team Pt discussed with Dr. Bill; please see attestation for further recs/changes. <West Bill - Last Filed: 08/02/18 10:37> Objective - Vital Signs/Intake and Output Vital Signs (last 24 hours): Temp Pulse Resp BP Pulse Ox 98.5 F 64 20 152/86 H 97 08/02/18 06:00 08/02/18 08:35 08/02/18 06:00 08/02/18 08:35 08/02/18 06:00 - Medications Medications: Current Medications Amlodipine Besylate (Norvasc) 10 mg PO DAILY [facility] Ceftriaxone Sodium (Rocephin 1 Gram Ivpb) 1 gm in 100 mls @ 100 mls/hr IVPB DAILY [facility]; Protocol Last Admin: 08/02/18 08:35 Dose: 100 mls/hr Metronidazole (Flagyl) 500 mg in 100 mls @ 100 mls/hr IVPB Q8 [facility]; Protocol Last Admin: 08/02/18 05:24 Dose: 100 mls/hr Sodium Chloride (Sodium Chloride 0.9%) 1,000 mls @ 100 mls/hr IV .Q10H [facility] Last Admin: 08/01/18 17:49 Dose: 100 mls/hr Insulin Detemir (Levemir) 10 unit SC [facility] Insulin Human Lispro (Humalog Low) 0 units SC [facility]; Protocol Lisinopril (Zestril) 20 mg PO DAILY [facility] Last Admin: 08/02/18 08:35 Dose: 20 mg Methadone HCl (Methadone) 70 mg PO DAILY [facility] Last Admin: 08/02/18 08:35 Dose: 70 mg Morphine Sulfate (Morphine) 4 mg IVP Q3H PRN PRN Reason: Pain, moderate (4-7) Last Admin: 08/02/18 05:24 Dose: 4 mg Ondansetron HCl (Zofran Inj) 4 mg IVP Q6H PRN PRN Reason: Nausea/Vomiting Last Admin: 08/02/18 06:41 Dose: 4 mg Pantoprazole Sodium (Protonix Inj) 40 mg IVP DAILY@0600 [facility] Last Admin: 08/02/18 06:42 Dose: 40 mg - Labs Labs: 08/01/18 04:35 08/02/18 07:00 PT 11.6 SECONDS (9.4-12.5) 08/01/18 07:22 INR 1.03 08/01/18 07:22 Attending/Attestation - Attestation I have personally seen and examined this patient.: Yes I have fully participated in the care of the patient.: Yes I have reviewed all pertinent clinical information, including history, physical exam and plan: Yes Notes (Text): 08/02/18 10:35 I have seen and examined patient with GI fellow. Continues to endorse ongoing abdominal pain, slightly improved compared to prior. He denies nausea, vomiting, fever/chills. Abdominal pain, acute cholecystitis History of HCC s/p chemoembolization, history of HCV with supposed treatment Hepatic lesion DM/HTN - NPO - Continue with antibiotic therapy - Awaiting MRCP to rule out choledocholithiasis - Continue to monitor LFTs - Awaiting viral hepatitis panel and HCV viral load, patient will require further follow up of underlying liver lesion with hepatology team at [facility] - Follow up surgical recommendations - Will continue to monitor patient clinical course
--- NOTE | 2018-08-02 07:24 | CP.PCM.PN ---
Subjective - Date & Time of Evaluation Date of Evaluation: 08/02/18 Time of Evaluation: 07:19 - Subjective Subjective: Surgery Progress note- Dr. Villar Patient seen and examined at bedside. Complaining of continued RUQ pain. Spoke w/ MRI and plan for MCRP today at 10:00. denies vomiting, fevers chills. + OOB and ambulating. + Nausea Objective - Vital Signs/Intake and Output Vital Signs (last 24 hours): Temp Pulse Resp BP Pulse Ox 98.3 F 65 16 147/83 96 08/01/18 21:45 08/01/18 21:45 08/01/18 21:45 08/01/18 21:45 08/01/18 21:45 - Medications Medications: Current Medications Amlodipine Besylate (Norvasc) 10 mg PO DAILY [facility] Ceftriaxone Sodium (Rocephin 1 Gram Ivpb) 1 gm in 100 mls @ 100 mls/hr IVPB DAILY [facility]; Protocol Last Admin: 08/01/18 10:31 Dose: 100 mls/hr Metronidazole (Flagyl) 500 mg in 100 mls @ 100 mls/hr IVPB Q8 [facility]; Protocol Last Admin: 08/02/18 05:24 Dose: 100 mls/hr Sodium Chloride (Sodium Chloride 0.9%) 1,000 mls @ 100 mls/hr IV .Q10H [facility] Last Admin: 08/01/18 17:49 Dose: 100 mls/hr Insulin Detemir (Levemir) 10 unit SC HS [facility] Insulin Human Lispro (Humalog Low) 0 units SC ACHS [facility]; Protocol Lisinopril (Zestril) 20 mg PO DAILY [facility] Methadone HCl (Methadone) 70 mg PO DAILY [facility] Last Admin: 08/01/18 12:13 Dose: 70 mg Morphine Sulfate (Morphine) 4 mg IVP Q3H PRN PRN Reason: Pain, moderate (4-7) Last Admin: 08/02/18 05:24 Dose: 4 mg Ondansetron HCl (Zofran Inj) 4 mg IVP Q6H PRN PRN Reason: Nausea/Vomiting Last Admin: 08/02/18 06:41 Dose: 4 mg Pantoprazole Sodium (Protonix Inj) 40 mg IVP DAILY@0600 [facility] Last Admin: 08/02/18 06:42 Dose: 40 mg - Labs Labs: 08/01/18 04:35 08/01/18 04:35 PT 11.6 SECONDS (9.4-12.5) 08/01/18 07:22 INR 1.03 08/01/18 07:22 - Constitutional Appears: Non-toxic, No Acute Distress - Head Exam Head Exam: ATRAUMATIC - Eye Exam Eye Exam: EOMI - Respiratory Exam Respiratory Exam: NORMAL BREATHING PATTERN. absent: Accessory Muscle Use, Respiratory Distress - Cardiovascular Exam Cardiovascular Exam: REGULAR RHYTHM. absent: Bradycardia, Tachycardia - GI/Abdominal Exam GI & Abdominal Exam: Soft, Tenderness (RUQ tenderness). absent: Distended, Firm, Guarding, Rigid - Neurological Exam Neurological Exam: Alert, Awake, Oriented x3 Assessment and Plan - Assessment and Plan (Free Text) Assessment: 68M w/ acute cholecystitis possible choledocholithiasis Plan: - f/u MRCP - pending results will plan for OR today or tomorrow - possible ERCP - will follow closely - maintain NPO - further recs per Dr. Villar surgical attending PGY2
--- NOTE | 2018-08-02 07:43 | CON ---
DATE: 08/01/2018 ENDOCRINOLOGY CONSULTATION LOCATION: Room 567. HISTORY OF PRESENT ILLNESS: This is a 68-year-old male with known history of liver cancer or hepatocellular carcinoma and is now being admitted with severe and diffuse abdominal pain and associated loose watery diarrhea and is now being referred for diabetic evaluation and management. PAST MEDICAL HISTORY: As mentioned above, history of type 2 diabetes insulin requiring on a combination of Lantus taking 70 units at bedtime with glyburide and metformin 5/500 b.i.d. is given, history of hypertension and dyslipidemia, history of IV drug abuse, currently on methadone maintenance therapy. FAMILY HISTORY: Positive for hypertension and heart disease. Positive for diabetes and hypertension. SOCIAL HISTORY: The patient admits to IV drug abuse in the past many years currently on methadone at 70 mg once daily maintenance. The patient has supportive family with positive IV drug abuse as noted. Also history of nicotine use only especially in the last few years prior to admission. REVIEW OF SYSTEMS: As mentioned above. Admits to generalized body weakness with episodic bouts of dizziness and lightheadedness, worse on the day of admission. No chest pains or palpitations. No PND. His oral intake is suboptimal . Intractable diarrhea and vomiting. PHYSICAL EXAMINATION GENERAL: The patient is an average built male in no apparent distress. VITAL SIGNS: Blood pressure 140/80, pulse 70 beats per minute and regular, temperature 98, respirations 20. Height is 6 feet 2 inches, weight is 190 pounds. HEENT: Head is normocephalic. Eyes anicteric with pink conjunctivae. Fundoscopy not possible at this time. Ears, nose, and throat otherwise normal. NECK: Supple. Thyroid gland is normal size. No carotid bruits or any cervical adenopathy. CARDIOPULMONARY: Some adynamic precordium. S1, S2 is rapid and regular. LUNGS: Clear to auscultation. ABDOMEN: Flat, soft, and positive bowel sounds. EXTREMITIES: No peripheral edema. Pulses are +2 bilaterally. LABORATORY DATA: His glucose levels have been fluctuating and ranged from 92 to 134 to 309 mg/dL. His chemistries showed a BUN of 51, sodium 134, potassium 4.6, chloride 97, CO2 of 25, glucose 513, and creatinine of 1.4. ASSESSMENT: This is a 68-year-old male with an apparent intractable diarrhea and diffuse abdominal pain and evaluated for acute cholecystitis and is now kept n.p.o as noted thereof. PLAN OF MANAGEMENT: We will continue the current serial chemistries and IV hydration as given. However, we will start him on a low dose of basal insulin given as Levemir 10 units subcutaneous at bedtime daily to start tomorrow night. We will titrate control. We will also modify the coverage scale to a very low dose algorithm using Humalog insulin to obviate hypoglycemia. We will consider the switch over to a basal and bolus insulin drug combination once his oral intake improves. We will follow with you. Sofía Eduardo MD
[2018-08-02 07:49] LABS: ALBUMIN 3.6 g/dL (3.0-4.8); ALT/SGPT 410 U/L (7-56); AST/SGOT 306 U/L (17-59); BLOOD UREA NITROGEN 16 mg/dL (7-21); CALCIUM 9.5 mg/dL (8.4-10.5); GAMMA GLUTAMYL TRANSPEPTIDASE 719 U/L (8-78); GFR NON-AFRICAN AMERICAN 60; HDL CHOLESTEROL 51 mg/dL (29-60)
[2018-08-02 07:56] LABS: HEPATITIS B SURFACE AG Negative (NEGATIVE)
[2018-08-02 07:58] LABS: LDL CHOLESTEROL 90 mg/dL (0-129)
[2018-08-02] MEDS: Insulin Lispro (humaLOG) LOW Coverage SC SCH ×4 (08:00→22:53)
[2018-08-02 08:02] LABS: HEPATITIS A IGM NEGATIVE (NEGATIVE); HEPATITIS B CORE AB NEGATIVE (NEGATIVE)
[2018-08-02] MEDS: cefTRIAXone 1 gm 1 GM/100 ML BAG IVPB SCH ×2 (08:35→10:00)
[2018-08-02] MEDS ORDERED: Non Formulary Medication (Amlodipine Besylate/Benazepr [Lotrel 10 Mg-20 Mg] 1 CAP) PO SCH (10:00)
--- NOTE | 2018-08-02 10:45 | MRI ---
Date of service: 08/02/2018 PROCEDURE: Magnetic Resonance Cholangiopancreatography HISTORY: COMPARISON: None available. TECHNIQUE: Multiplanar, multisequence MR images of the abdomen were obtained, including heavily T2 weighted MRCP images of the biliary system. Rotating maximum intensity projection images of the biliary system were generated. FINDINGS: MRCP: The common bile duct is dilated as well as the central intrahepatic biliary tree. The common hepatic duct measures 9.4 mm with the proximal CBD measuring 13.2, mid segment measuring 9.7 and distal segment measuring 6.9 mm. Pancreatic duct is borderline abnormally dilated to 4.6 mm at the mid body level with focal dilatation 6.8 mm at the junction of distal body and proximal tail as well. No definitive pancreatic mass is identified however there is a potential filling defect or sharp stricture likely medially posterior to this dilatation with pancreatic neoplasm not excluded here (see series 4, image 38). LIVER: Unremarkable. GALLBLADDER: Gallbladder is distended with a large calculus and with sludge and retained fluid. No pericholecystic fluid collection identified grossly. SPLEEN: Unremarkable. PANCREAS: 1.8 by a 1.5 cm pseudocyst or duodenal diverticulum at the junction of the 2nd and 3rd portions of the duodenum or at the inferior margins of the pancreatic head. ADRENALS: Unremarkable. KIDNEYS: 1.9 x 1.6 cm cyst lower pole right kidney and 2.8 x 3.2 cm cyst upper pole left kidney. No obstructive uropathy bilaterally or significant perinephric reaction. AORTA: No aneurysm. ASCITES: None. OTHER FINDINGS: None. IMPRESSION: 1. A dilated biliary tree is appreciated which is predominantly extrahepatic. Irregular dilatation of the pancreas is appreciated, particularly the junction of the body and tail potentially reflecting neoplasm or pancreatic duct stricture. No choledocholithiasis appreciated. Consider potential distal CBD stricture or tiny calculus poorly visualized. Consider follow-up ERCP. 2. Gross cholelithiasis with distended gallbladder noted but no pericholecystic fluid collection evident. 3. Duodenal diverticulum versus possible pseudocyst related to the junction of 2nd and 3rd portions of the duodenum versus inferior margins of the head of the pancreas. 4. Large calculus in the lumen of the gallbladder which is distended but without pericholecystic fluid collection or gross mural thickening evident. Prominent is seen layering the dependent portion. 5. Other lesser findings as described above.
[2018-08-02 10:52] LABS: HEPATITIS C ANTIBODY REACTIVE (NEGATIVE)
--- NOTE | 2018-08-02 13:15 | CP.PCM.CON ---
History of Present Illness - History of Present Illness History of Present Illness: PGY-4 GI Fellow Consult Note Pt is a 68M with hx of HCV (reportedly treat in 2017), HCC s/p chemoembolization ([facility]), gallstones, h/o IPMN (seen in 2017) presenting with acute abdominal pain. Symptoms started 3 days ago associated with non-bloody diarrhea. Pain was mostly located in RUQ described as burning, initially intermittent then became more constant, rated 10/10. Initial evaluation revealed elevated liver tests, possible cholecystitis. MRCP was ordered revealed cystic lesion(s) in pancreas, dilated CBD, possible distal CBD stricture vs stone; therefore, Dr. Sarabia consulted for further evaluation, possible advanced endoscopic evaluation. 12 point ROS negative other than stated above PMHx: See above plus T2DM, HTN PSHx: Denies Meds: Reviewed in chart FMHx - Denies GI related cancers SocHx - Previous IVDU now on methadone, denies EtOH, [employer] at [facility] All: Pentazocine Past Patient History - Infectious Disease Hx of Infectious Diseases: None - Past Social History Smoking Status: Never Smoked - CARDIAC Hx Cardiac Disorders: Yes Hx Hypertension: Yes - PULMONARY Hx Respiratory Disorders: No - NEUROLOGICAL Hx Neurological Disorder: No - HEENT Hx HEENT Problems: Yes (X GLASSES) - RENAL Hx Chronic Kidney Disease: No - ENDOCRINE/METABOLIC Hx Endocrine Disorders: Yes Hx Diabetes Mellitus Type 2: Yes - HEMATOLOGICAL/ONCOLOGICAL Hx Blood Disorders: Yes Hx Cancer: Yes (liver) - INTEGUMENTARY Hx Dermatological Problems: No - MUSCULOSKELETAL/RHEUMATOLOGICAL Hx Falls: No - GASTROINTESTINAL Hx Gastrointestinal Disorders: No - GENITOURINARY/GYNECOLOGICAL Hx Genitourinary Disorders: No - PSYCHIATRIC Hx Psychophysiologic Disorder: No Hx Depression: No Hx Emotional Abuse: No Hx Physical Abuse: No - SURGICAL HISTORY Hx Surgeries: No - ANESTHESIA Hx Anesthesia: No Meds Allergies/Adverse Reactions: Allergies Allergy/AdvReac Type Severity Reaction Status Date / Time pentazocine [From Joana] Allergy ANAPHYLAXIS Verified 06/09/17 19:39 - Medications Medications: Current Medications Amlodipine Besylate (Norvasc) 10 mg PO DAILY [facility] Ceftriaxone Sodium (Rocephin 1 Gram Ivpb) 1 gm in 100 mls @ 100 mls/hr IVPB DAILY [facility]; Protocol Last Admin: 08/02/18 08:35 Dose: 100 mls/hr Metronidazole (Flagyl) 500 mg in 100 mls @ 100 mls/hr IVPB Q8 [facility]; Protocol Last Admin: 08/02/18 05:24 Dose: 100 mls/hr Sodium Chloride (Sodium Chloride 0.9%) 1,000 mls @ 100 mls/hr IV .Q10H [facility] Last Admin: 08/01/18 17:49 Dose: 100 mls/hr Insulin Detemir (Levemir) 10 unit SC [facility] Insulin Human Lispro (Humalog Low) 0 units SC [facility]; Protocol Lisinopril (Zestril) 20 mg PO DAILY [facility] Last Admin: 08/02/18 08:35 Dose: 20 mg Methadone HCl (Methadone) 70 mg PO DAILY [facility] Last Admin: 08/02/18 08:35 Dose: 70 mg Morphine Sulfate (Morphine) 4 mg IVP Q3H PRN PRN Reason: Pain, moderate (4-7) Last Admin: 08/02/18 12:32 Dose: 4 mg Ondansetron HCl (Zofran Inj) 4 mg IVP Q6H PRN PRN Reason: Nausea/Vomiting Last Admin: 08/02/18 06:41 Dose: 4 mg Pantoprazole Sodium (Protonix Inj) 40 mg IVP DAILY@0600 [facility] Last Admin: 08/02/18 06:42 Dose: 40 mg Physical Exam - Constitutional Appears: Well, No Acute Distress - Head Exam Head Exam: ATRAUMATIC, NORMAL INSPECTION - Eye Exam Eye Exam: EOMI. absent: Scleral icterus - ENT Exam ENT Exam: Mucous Membranes Dry. absent: Mucous Membranes Moist - Respiratory Exam Respiratory Exam: Clear to Auscultation Bilateral. absent: Accessory Muscle Use, Respiratory Distress - Cardiovascular Exam Cardiovascular Exam: REGULAR RHYTHM, RRR - GI/Abdominal Exam GI & Abdominal Exam: Guarding, Normal Bowel Sounds, Soft, Tenderness (ttp in RUQ with vol guarding). absent: Bruit, Diminished Bowel Sounds, Distended, Firm, Hernia, Organomegaly, Rigid - Rectal Exam Rectal Exam: Deferred - Extremities Exam Extremities exam: Positive for: normal inspection. Negative for: pedal edema - Neurological Exam Neurological exam: Alert, CN II-XII Intact - Psychiatric Exam Psychiatric exam: Normal Affect, Normal Mood - Skin Skin Exam: Normal Color, Warm Results - Vital Signs Recent Vital Signs: Last Vital Signs Temp 98.5 F 01/28/19 06:00 Pulse 64 08/02/18 08:35 Resp 20 08/02/18 06:00 BP 152/86 H 08/02/18 08:35 Pulse Ox 97 08/02/18 06:00 - Labs Result Diagrams: 08/01/18 04:35 08/02/18 07:00 Labs: Laboratory Results - last 24 hr 08/01/18 08/01/18 08/01/18 09:00 09:00 16:15 Sodium Potassium Chloride Carbon Dioxide Anion Gap BUN Creatinine Est GFR ( Amer) Est GFR (Non-Af Amer) POC Glucose (mg/dL) 134 H Random Glucose Hemoglobin A1c Calcium Phosphorus Magnesium Total Bilirubin GGT AST ALT Alkaline Phosphatase Total Protein Albumin Globulin Albumin/Globulin Ratio Triglycerides Cholesterol LDL Cholesterol Direct HDL Cholesterol Alpha Fetoprotein 2.5 TSH 3rd Generation Hepatitis A IgM Ab Negative Hep Bs Antigen Negative Hep B Core IgM Ab Negative Hepatitis C Antibody Reactive 08/01/18 08/01/18 08/02/18 20:32 23:01 07:00 Sodium 140 Potassium 4.3 Chloride 109 H Carbon Dioxide 27 Anion Gap 9 L BUN 16 Creatinine 1.2 Est GFR ( Amer) > 60 Est GFR (Non-Af Amer) 60 POC Glucose (mg/dL) 92 89 Random Glucose 132 H Hemoglobin A1c Calcium 9.5 Phosphorus 3.8 Magnesium 1.8 Total Bilirubin 1.5 H GGT 719 H AST 306 H ALT 410 H Alkaline Phosphatase 245 H Total Protein 7.2 Albumin 3.6 Globulin 3.6 Albumin/Globulin Ratio 1.0 L Triglycerides 76 Cholesterol 192 LDL Cholesterol Direct 90 HDL Cholesterol 51 Alpha Fetoprotein TSH 3rd Generation Hepatitis A IgM Ab Hep Bs Antigen Hep B Core IgM Ab Hepatitis C Antibody 08/02/18 08/02/18 07:00 07:00 Sodium Potassium Chloride Carbon Dioxide Anion Gap BUN Creatinine Est GFR ( Amer) Est GFR (Non-Af Amer) POC Glucose (mg/dL) Random Glucose Hemoglobin A1c 13.8 H Calcium Phosphorus Magnesium Total Bilirubin GGT AST ALT Alkaline Phosphatase Total Protein Albumin Globulin Albumin/Globulin Ratio Triglycerides Cholesterol LDL Cholesterol Direct HDL Cholesterol Alpha Fetoprotein TSH 3rd Generation 0.12 L Hepatitis A IgM Ab Hep Bs Antigen Hep B Core IgM Ab Hepatitis C Antibody Assessment & Plan - Assessment and Plan (Free Text) Assessment: #Acute cholecystitis: CT and U/S reviewed. Gallstones present, GB thickened. CBD dilated, no obvious stone. MRCP with extrahep dilation with possible stricture vs small distal stone. # IPMN: Seen on CT in 2017, likely same lesion seen on MRCP # HCC s/p chemoembolization: Somewhat reassuring that AFP not elevated but does not r/o HCC # Hep C s/p treatment 2018 # Uncontrolled T2DM # HTN # Chronic methadone with constipation. Plan: - EUS+EGD possible ERCP today - Gen Surg following - Continue abx, follow up cultures - Pain management per primary - Await HCV RNA lvl; HAV and HBV neg - Will need f/u with his [facility]at[facility] team Pt discussed with Dr. Sarabia; please see attestation for further recs/changes.
--- NOTE | 2018-08-02 13:52 | PN ---
DATE: 08/02/2018 SUBJECTIVE: He is resting in bed. He is in pain. He is asking for his methadone. I am talking to the nurse, but given his methadone earlier. He has got acute cholecystitis and is in chronic pain, has a history of hepatitis C and lot of other issues. He is on morphine, Flagyl, Levemir, methadone, Norvasc, Protonix, Rocephin, IV fluids, Zestril, Zofran. He is going for a procedure this morning. LABORATORY DATA: He has a 6.3 white count, 12.9 hemoglobin, 39.2 hematocrit with 168 platelets. INR is 1.02. He has got 140 sodium, potassium 4.3, BUN 16, creatinine 1.2, GFR is 60, sugar is 132, calcium is 9.5, phosphorous 3.8, magnesium 1.8, total bili is 1.5, GGT is 719, AST 306, ALT is 410, alk phos 245 all elevated, total protein 7.2, albumin is 3.6, TSH is low at 0.12, I will recheck that again, could be stress related. The patient is being seen by Surgery, Endocrinology and Gastroenterology and hopefully will do well today. Magnetic resonance cholangiopancreatography and surgery, I believe, are the plan. Methadone and morphine. Check his labs tomorrow and we will also check a TSH tomorrow and see if that does not resolve and will continue aggressive treatment and care on Farhat Ford who is having acute cholecystitis. Partha Mills DO
--- NOTE | 2018-08-02 15:36 | PN ---
DATE: 08/02/2018 LOCATION: In room 567. SUBJECTIVE: This is a 68-year-old male admitted with severe and diffuse abdominal pain and diarrhea and evaluated to have acute cholecystitis and is currently n.p.o. at this time as noted. He is being followed also for metabolic management of recent hyperglycemic accelerations as noted thereof. Today's glucose levels have ranged from 89-92 mg/dL. His chemistry showed a BUN of 16, sodium 140, potassium 4.3, chloride 109, CO2 of 27, glucose 132 and creatinine 1.2. His liver transaminases are elevated with an AST level of 306 and a ALT level of 410 and a GGTP level of 719 which is extremely elevated as noted thereof. ASSESSMENT: This is a 68-year-old male with uncontrolled and decompensated type 2 insulin-requiring diabetes presenting here with diffuse abdominal pain and evaluated to be not to have acute cholecystitis and is now being followed closely for metabolic management. The patient and the patient at this time is still n.p.o. and his glycemic accelerations room improved thereof as noted. His A1c level is still pending at this time. So for now, we will continue the low-dose correction scale using Humalog insulin as given and we will titrate incrementally as indicated to optimize metabolic control. We will add Levemir given as 10 units subcu at bedtime to start tonight as ordered. As his oral intake is advanced to solid food, then we will switch him over to a more physiologic basal and bolus insulin drug combination as ordered. We will obtain serial chemistries. Chemistries and supplement accordingly as needed. We will follow. Sofía Eduardo MD
[2018-08-02] MEDS ORDERED: Propofol 10 mg/ml Inj (20 ML) ONE ×3 (20:14→21:23)
[2018-08-02] MEDS: Sodium Chloride 0.9% 1,000 ML IV SCH ×2 (20:36→23:07)
[2018-08-02] MEDS: Insulin Reg-MEDIUM-Coverage SC SCH (20:37)
[2018-08-02] MEDS ORDERED: Sodium Chloride 0.9% 1,000 ML IV SCH (21:30)
[2018-08-02] MEDS ORDERED: Insulin Detemir 100 units/ml Vial (Levemir) SC SCH (22:00)
[2018-08-03] MEDS: Morphine 4 mg/ml ISec IVP PRN (04:03)
--- NOTE | 2018-08-03 05:22 | PN ---
DATE: 08/03/2018 ENDOCRINOLOGY FOLLOWUP NOTE LOCATION: In room 567. SUBJECTIVE: This is a 68-year-old male with hepatocellular carcinoma post chemoembolization and also hepatitis C, presenting here with sudden diffuse abdominal pain and evaluated to have acute cholecystitis, and is now undergoing full GI workup and management. He has been switched over now from n.p.o. to a liquid diet as ordered. He underwent an upper endoscopy yesterday as noted. His glycemic levels are fluctuating, but improved as noted. His chemistry showed a BUN of 16, sodium 140, potassium 4.3, chloride 109, CO2 of 27, glucose 132, and creatinine 1.2. He has very elevated liver transaminases with a GGT level of 719 and AST level of 306 and an ALT level of 410. His glucose values have ranged from 83-140 mg per dL. So at this time, we will continue the present medical management with a low-dose algorithm using Humalog insulin as given. As his oral intake is advanced, then we will switch him over to a more basal and bolus insulin drug combination as indicated. We will continue the Levemir given as 10 units subcu at bedtime daily, and we will titrate accordingly depending on his fasting glucose values as noted. We will obtain serial chemistries and supplement accordingly as needed. We will follow. Sofía Eduardo MD
[2018-08-03] MEDS: metroNIDAZOLE IV 500 mg/100 ml 500 MG/100 ML BAG IVPB SCH (05:28)
--- NOTE | 2018-08-03 05:50 | CP.PCM.PN ---
Subjective - Date & Time of Evaluation Date of Evaluation: 08/03/18 Time of Evaluation: 05:46 - Subjective Subjective: Surgery Progress note- Dr. Villar Patient seen and examined at bedside. Patient is s/p EUS, EGD by GI yesterday, and found to have pancreatic mass, ductal dilatation which is suspicious for pancreatic ca. had lengthy discussion w/ patient late last night and decided that he would like to follow up with his hepatobilliary specialist in [place] prior to cholecystectomy. Patient admits urine is clearing up, and pain is overall better. at the end of encounter patient once again expresses desire to follow up with is Hepatobilliary and oncology team first. Denies: fevers, chills, chest pain, shortness of breath, vomiting, diarrhea. + oob and ambulating, flatus Objective - Vital Signs/Intake and Output Vital Signs (last 24 hours): Temp Pulse Resp BP Pulse Ox 98.5 F 60 17 183/98 H 100 08/02/18 22:00 08/02/18 23:06 08/02/18 23:06 08/02/18 23:06 08/02/18 23:06 - Medications Medications: Current Medications Amlodipine Besylate (Norvasc) 10 mg PO DAILY [facility] Last Admin: 08/02/18 13:39 Dose: 10 mg Ceftriaxone Sodium (Rocephin 1 Gram Ivpb) 1 gm in 100 mls @ 100 mls/hr IVPB DAILY [facility]; Protocol Last Admin: 08/02/18 10:00 Dose: Not Given Metronidazole (Flagyl) 500 mg in 100 mls @ 100 mls/hr IVPB Q8 [facility]IRO; Protocol Last Admin: 08/03/18 05:28 Dose: 100 mls/hr Sodium Chloride (Sodium Chloride 0.9%) 1,000 mls @ 100 mls/hr IV .Q10H [facility] Last Admin: 08/02/18 23:07 Dose: 100 mls/hr Insulin Detemir (Levemir) 10 unit [place] HS JAIRO Last Admin: 08/02/18 23:15 Dose: 10 unit Insulin Human Lispro (Humalog Low) 0 units SC ACHS [facility]; Protocol Last Admin: 08/02/18 22:53 Dose: Not Given Lisinopril (Zestril) 20 mg PO DAILY [facility] Last Admin: 08/02/18 10:00 Dose: Not Given Methadone HCl (Methadone) 70 mg PO DAILY [facility] Last Admin: 08/02/18 10:00 Dose: Not Given Morphine Sulfate (Morphine) 4 mg IVP Q3H PRN PRN Reason: Pain, moderate (4-7) Last Admin: 08/03/18 04:03 Dose: 4 mg Ondansetron HCl (Zofran Inj) 4 mg IVP Q6H PRN PRN Reason: Nausea/Vomiting Last Admin: 08/02/18 14:50 Dose: 4 mg Pantoprazole Sodium (Protonix Inj) 40 mg IVP DAILY@0600 [facility] Last Admin: 08/03/18 05:28 Dose: 40 mg - Labs Labs: 08/01/18 04:35 08/02/18 07:00 PT 11.6 SECONDS (9.4-12.5) 08/01/18 07:22 INR 1.03 08/01/18 07:22 - Constitutional Appears: Non-toxic, No Acute Distress - Head Exam Head Exam: ATRAUMATIC - Eye Exam Eye Exam: EOMI. absent: Scleral icterus - ENT Exam ENT Exam: Mucous Membranes Moist - Respiratory Exam Respiratory Exam: NORMAL BREATHING PATTERN. absent: Accessory Muscle Use, Respiratory Distress - Cardiovascular Exam Cardiovascular Exam: REGULAR RHYTHM. absent: Bradycardia, Tachycardia - GI/Abdominal Exam GI & Abdominal Exam: Soft, Tenderness (mild tenderness in RUQ). absent: Di stended, Firm, Guarding, Rigid - Neurological Exam Neurological Exam: Alert, Awake, Oriented x3 - Psychiatric Exam Psychiatric exam: Normal Affect - Skin Skin Exam: Intact, Warm Assessment and Plan - Assessment and Plan (Free Text) Assessment: 68M pmhx sign hepatocellular carcinoma; presented w/ RUQ pain + nausea, vomiting, now s/p EGD & EUS found to have pancreatic mass possible pancreatic ca w/ ductal narrowing, pseudocyst Plan: - discussed patients case in detail w/ patient; have come to an agreement to that patient wants to follow up with his oncology and hepatobillary specialist first - no acute surgical intervention during this hospital visit - anti-emetic and analgesia PRN - continued management per Primary medical team - discussed w/ Dr. Villar surgical attending PGY2
[2018-08-03 07:28] LABS: HEMOGLOBIN 12.2 g/dL (14.0-18.0); MEAN CELL VOLUME 87.9 fl (80.0-105.0); MEAN CORPUSCULAR HEMOGLOBIN 27.4 pg (25.0-35.0); MEAN CORPUSCULAR HGB CONC 31.1 g/dl (31.0-37.0); MEAN PLATELET VOLUME 11.3 fl (7.0-11.0); RBC 4.46 10^6/uL (3.5-6.1); RED CELL DISTRIBUTION WIDTH 13.3 % (11.5-14.5); WHITE BLOOD COUNT 4.4 10^3/uL (4.5-11.0)
[2018-08-03] MEDS ORDERED: Bupivacaine 0.5% 50 ML IJ ONE (07:33)
[2018-08-03] MEDS ORDERED: Iohexol 240 (50 ml) ONE (07:33)
[2018-08-03 07:44] LABS: ALBUMIN 3.4 g/dL (3.0-4.8); ALT/SGPT 375 U/L (7-56); AST/SGOT 273 U/L (17-59); BLOOD UREA NITROGEN 12 mg/dL (7-21); GFR NON-AFRICAN AMERICAN > 60
[2018-08-03] MEDS: Insulin Lispro (humaLOG) LOW Coverage SC SCH (07:53)
--- NOTE | 2018-08-03 08:23 | CON ---
DATE: 08/02/2018 I have discussed about this patient with Dr. Villar. The patient underwent an endoscopic ultrasound evaluation today. The patient was found to have a cystic lesion in the head of the pancreas, measuring over [address] scan with pancreatic protocol done in 2017 was reviewed. There is increase in the size of this lesion. Pancreatic duct also was found to be dilated with a focal dilation present. There was also cystic lesion noticed in the body of the pancreas. The patient did have a dilated common bile duct with a smooth distal narrowing noticed. There was no obvious filling defect noticed. There was no diverticulum noticed. The gallbladder was filled with sludge with gallstones. IMPRESSION: In summary, 1. Dilated common bile duct with a smooth narrowing with no filling defect. 2. Large cystic lesion in the head of the pancreas with the increase in size noticed compared with the previous CT. 3. Dilated pancreatic duct with focal dilation. 4. The cystic lesion is clinically more suggestive of intraductal papillary mucinous neoplasms. 5. No Duodenal diverticulum noticed. Ampulla appeared normal, draining clear bile. RECOMMENDATIONS: 1. HIDA scan. 2. Actigall. 3. Continue with the antibiotics. 4. Followup LFT 5. Discuss with Dr. Villar. We would recommend intraoperative cholangiogram if cholecystectomy is planned. The patient does have an appointment in [place] where he has been followed for liver lesions. The patient is due to have a CAT scan. The patient was advised to have copies of the imaging studies, especially to evaluate the pancreatic lesion for followup at [place]. Timbo Sarabia MD MARIE
[2018-08-03] MEDS: cefTRIAXone 1 gm 1 GM/100 ML BAG IVPB SCH (09:19)
[2018-08-03 09:22] VITALS: BP 156/79
[2018-08-03 09:31] VITALS: PULSE 58; RESP 20; TEMP 98.3; O2SAT 97
--- NOTE | 2018-08-03 15:54 | CP.PCM.PN ---
Subjective - Date & Time of Evaluation Date of Evaluation: 08/03/18 Time of Evaluation: 09:20 - Subjective Subjective: PGY-4 GI Fellow Prog Note Pt lying in bed when seen this AM. States that he is feeling a little better this AM, minor headache. Reports abd pain improved and tolerating diet. States he has follow-up apt with his regular surgeons at [facility] tomorrow. 5 point ROS negative other than stated above Objective - Vital Signs/Intake and Output Vital Signs (last 24 hours): Temp Pulse Resp BP Pulse Ox 98.3 F 58 L 20 156/79 H 97 08/03/18 07:00 08/03/18 07:00 08/03/18 07:00 08/03/18 09:19 08/03/18 07:00 - Labs Labs: 08/03/18 07:10 08/03/18 07:10 PT 11.6 SECONDS (9.4-12.5) 08/01/18 07:22 INR 1.03 08/01/18 07:22 - Constitutional Appears: Well, No Acute Distress - Head Exam Head Exam: ATRAUMATIC, NORMAL INSPECTION - Eye Exam Eye Exam: EOMI. absent: Scleral icterus - ENT Exam ENT Exam: Mucous Membranes Moist. absent: Mucous Membranes Dry - Respiratory Exam Respiratory Exam: NORMAL BREATHING PATTERN. absent: Accessory Muscle Use, Respiratory Distress - GI/Abdominal Exam GI & Abdominal Exam: Soft, Normal Bowel Sounds. absent: Bruit, Distended, Firm, Guarding, Rigid, Tenderness, Mass, Organomegaly, Pulsatile Mass Assessment and Plan - Assessment and Plan (Free Text) Assessment: # Possible Acute cholecystitis: CT and U/S reviewed. Gallstones present, GB thickened some on CT but not on US. CBD dilated, no obvious stone. MRCP with extrahep dilation with possible stricture vs small distal stone. # Pancreatic cystic lesion vs mass, IPMN: Seen in head of pancrease on EUS 08/02/18. Slightly increased in size from 2017 # HCC s/p chemoembolization: Somewhat reassuring that AFP not elevated but does not r/o HCC # Hep C s/p treatment 2017 # Uncontrolled T2DM # HTN # Chronic methadone with constipation Plan: - Pt plans to f/u with [facility] surgeons as he has done previously - S/p course of antibiotics - Liver tests improving Pt seen and examined with Dr. Sarabia; please see attestation for further recs/changes.
--- NOTE | 2018-08-03 22:32 | PN ---
DATE: 08/03/2018 SUBJECTIVE: I saw the patient 2 days ago and he was evaluated for acute cholecystitis. The CAT scan is somewhat suggestive of it with a questionable thick walled and possibly a little bit fluid around it. The common duct was dilated. There was a complex history of a pancreatic lesions in addition to hepatocellular carcinoma that was treated with chemoembolization in the phase of hepatitis C that is now currently treated with low viral loads. Reviewed the CAT scan and an MRCP was ordered, which showed multiple pancreatic lesions consistent with IPMN, a large stone with sludge. EUS was done yesterday showing a large common duct, multiple IPMNs, and no residual stone. Liver function is down to normal. IMPRESSION: My initial impression was acute cholecystitis in a very complex patient; however, at this time, I do not believe that is the situation. The liver functions are normalizing very quickly. Bilirubin is now normal. SGOT and SGPT are normalizing. I believe there was a sludge that passed. PLAN: My plan was not to operate, but to do a HIDA scan to confirm. In the meantime, we will start on ursodiol. The patient is being actively followed by Dr. South's team at [place]. The patient elected to be discharged and to complete the office visit as necessary. The was very upset about not being told that the EUS was canceled and then rescheduled for late last night; she was not told and did not find out until this morning. I apologize for this event and I agree that it should not have happened, but she did not find satisfaction in this, I believe. Spencer Villar MD
--- NOTE | 2018-08-04 02:43 | DS ---
SUBJECTIVE: He has a bunch of issues going on. He had an acute cholecystitis with abdominal pain. He has got a pancreatic mass and pancreatic cancer. He did not want to have any procedures done here. He is going to be discharged today. He will follow up with his [place] cancer doctors tomorrow. He is going to go home on his regular medications that he takes, which are glyburide, metformin, Glucovance, his Lotrel,methadone, KwikPen insulin, Protonix and MiraLax. PHYSICAL EXAMINATION: VITAL SIGNS: He has 98.5 temp; 60 pulse; 183/98 blood pressure, he will take his blood pressure meds; 17 respiratory rate; 100% O2 sat on room air. HEENT: His head is atraumatic, normocephalic. HEART: Regular rate. LUNGS: Decreased breath sounds, but clear. ABDOMEN: Soft. EXTREMITIES: No edema. He is going to follow up with his cancer doctors tomorrow. LABORATORY DATA: He had a 4.4 white count, 12.2 hemoglobin, 39.2 hematocrit with 138 platelets. He has 139 sodium, potassium 4.1, BUN 12, creatinine 1. GFR is greater than 60. Sugar is 135, calcium is 9. GGT is 273. AST is 375, alk phos is 212. TSH is low at 0.36. He did not want me to adjust any medications. He did not want me to increase his blood pressure medications for his elevated blood pressures, says because he is here in the hospital, and he will follow up with his cancer doctors tomorrow at [place]. Let me know if he wants me to change anything. I asked him he could call me. He does not want to do that right now and will call me if there is anything else. Partha Mills DO
== END 2018-08-03 11:18 | disposition home or self-care (01) | DRG 445 ==
LOC: ED 04:14 → ERH 07:17 → 5RNO 09:57
PROVIDERS: ADMIT Family Medicine; ATTEND Family Medicine
PROC: 0F7D8ZZ Dilation of Pancreatic Duct, Via Natural or Artificial Opening Endoscopic (ICD-10-PCS; 2018-08-02)
PROC: 0DJ08ZZ Inspection of Upper Intestinal Tract, Via Natural or Artificial Opening Endoscopic (ICD-10-PCS; principal; 2018-08-02 17:45)
PROC: 0F798ZZ Dilation of Common Bile Duct, Via Natural or Artificial Opening Endoscopic (ICD-10-PCS; 2018-08-02 17:45)
DX: K80.00 Calculus of gallbladder with acute cholecystitis without obstruction (principal); C22.9 Malignant neoplasm of liver, not specified as primary or secondary; K86.2 Cyst of pancreas; F11.20 Opioid dependence, uncomplicated; I10 Essential (primary) hypertension; E11.65 Type 2 diabetes mellitus with hyperglycemia; B19.20 Unspecified viral hepatitis C without hepatic coma; F19.10 Other psychoactive substance abuse, uncomplicated; K29.70 Gastritis, unspecified, without bleeding; K44.9 Diaphragmatic hernia without obstruction or gangrene; R10.13 Epigastric pain; E78.5 Hyperlipidemia, unspecified; K59.00 Constipation, unspecified; Z87.891 Personal history of nicotine dependence; Z92.21 Personal history of antineoplastic chemotherapy; Z79.4 Long term (current) use of insulin